=== PATIENT | male | born 1955 | race African-American/Black ===

== ENCOUNTER 2019-03-23 17:11 | Emergency (ER) | payer OTHER ==
[2019-03-23] MEDS ORDERED: METHYLPREDNISOLONE INJ 125 MG/2 ML SDV IV ONE (17:22)
[2019-03-23] MEDS ORDERED: IPRATROPIUM/ALBUTEROL 0.5-2.5 MG/3 ML AMPUL NEB ONE (17:22)
--- NOTE | 2019-03-23 17:24 | ER Document Report ---
ED Medical Screen (RME) - General Chief Complaint: Breathing Difficulty Stated Complaint: DIFFICULTY BREATHING Time Seen by Provider: 03/23/19 17:19 Mode of Arrival: Ambulatory Information source: Patient Notes: Patient presents complaining of shortness of breath that started yesterday. Patient denies any chest pain nausea vomiting or fever. Patient does report cough but states he has chronic cough. Patient does have a long history of smoking. Patient does not regularly see a doctor. I have greeted and performed a rapid initial assessment of this patient. A comprehensive ED assessment and evaluation of the patient, analysis of test results and completion of the medical decision making process will be conducted by additional ED providers. TRAVEL OUTSIDE OF THE [place] IN LAST 30 DAYS: No Past Medical History Past Surgical History: Reports: Other - Eye surgery - Immunizations Hx Diphtheria, Pertussis, Tetanus Vaccination: No Physical Exam - Vital signs Vitals: Temp Pulse Resp BP Pulse Ox 97.8 F 83 16 152/81 H 100 03/23/19 17:15 03/23/19 17:15 03/23/19 17:15 03/23/19 17:15 03/23/19 17:15 - Respiratory Respiratory status: No respiratory distress Chest status: Nontender Breath sounds: Nonproductive cough, Wheezing Course - Vital Signs Vital signs: Temp Pulse Resp BP Pulse Ox 97.8 F 83 16 152/81 H 100 03/23/19 17:15 03/23/19 17:15 03/23/19 17:15 03/23/19 17:15 03/23/19 17:15
--- NOTE | 2019-03-23 17:56 | RADIOLOGY REPORT (SQ) ---
EXAM DESCRIPTION: CHEST 2 VIEWS COMPLETED DATE/TIME: 03/23/2019 5:44 pm REASON FOR STUDY: sob COMPARISON: None. EXAM PARAMETERS: NUMBER OF VIEWS: two views TECHNIQUE: Digital Frontal and Lateral radiographic views of the chest acquired. RADIATION DOSE: NA LIMITATIONS: none FINDINGS: LUNGS AND PLEURA: No acute infiltrates or effusions. Calcification overlying right lower lung field between posterior 10th and 11th ribs consistent with calcified granuloma. MEDIASTINUM AND HILAR STRUCTURES: No masses or contour abnormalities. HEART AND VASCULAR STRUCTURES: Normal heart size and pulmonary vasculature. BONES: No acute findings. HARDWARE: None in the chest. OTHER: No other significant finding. IMPRESSION: NO ACUTE DISEASE. TECHNICAL DOCUMENTATION: JOB ID: [id number] SC-69 2010 [employer]- All Rights Reserved Reading location - IP/workstation name: [email or web address]
--- NOTE | 2019-03-23 18:11 | ER Document Report ---
ED General - General Chief Complaint: Shortness Of Breath Stated Complaint: DIFFICULTY BREATHING Time Seen by Provider: 03/23/19 17:19 [facility]: [facility] [[facility]] - Follow up as needed Mode of Arrival: Ambulatory Information source: Patient Notes: 63-year-old [id number] male presents with shortness of breath and chest tightness. He has had intermittent episodes of difficulties in the past worse over the past 24 hours. He has a 40-year pack per day smoking history and denies hematemesis or productive cough. He complains of a tightness in his chest and a difficulty moving air. He has been self-medicating with a rescue inhaler in the past, however has not seen a physician and was not prescribed any medications. He denies chest pain, palpitations or swelling in the lower extremities. TRAVEL OUTSIDE OF THE [place] IN LAST 30 DAYS: No - Related Data Allergies/Adverse Reactions: No Known Allergies Allergy (Unverified 03/23/19 17:26) Past Medical History - General Information source: Patient - Social History Smoking Status: Current Every Day Smoker Chew tobacco use (# tins/day): No Frequency of alcohol use: Occasional Drug Abuse: Cocaine Family History: Reviewed & Not Pertinent Patient has suicidal ideation: No Patient has homicidal ideation: No Past Surgical History: Reports: Other - Eye surgery - Immunizations Hx Diphtheria, Pertussis, Tetanus Vaccination: No Review of Systems - Review of Systems Notes: REVIEW OF SYSTEMS GENERAL: Negative for any nausea, vomiting, fevers, chills, or weight loss. NEUROLOGIC: Negative for any blurry vision, blind spots, double vision, facial asymmetry, dysphagia, dysarthria, hemiparesis, hemisensory deficits, vertigo, ataxia. HEENT: Negative for any head trauma, neck trauma, neck stiffness, photophobia, phonophobia, sinusitis, rhinitis. CARDIAC: Negative for any chest pain, dyspnea on exertion, paroxysmal nocturnal dyspnea, peripheral edema. PULMONARY:+shortness of breath, +wheezing, no COPD, or TB exposure. GASTROINTESTINAL: Negative for any abdominal pain, nausea, vomiting, bright red blood per rectum, melena. GENITOURINARY: Negative for any dysuria, hematuria, incontinence. INTEGUMENTARY: Negative for any rashes, cuts, insect bites. RHEUMATOLOGIC: Negative for any joint pains, photosensitive rashes, history of vasculitis or kidney problems. HEMATOLOGIC: Negative for any abnormal bruising, frequent infections or bleeding. I made no change Physical Exam - Vital signs Vitals: Pulse Ox 97 03/23/19 17:11 - Notes Notes: Reviewed vital signs and nursing note as charted by RN. CONSTITUTIONAL: Thin, alert and responsive 63-year-old man in no acute distress. HEAD: Normocephalic; atraumatic; No swelling EYES: PERRL; Conjunctivae clear, no drainage; EOMI ENT: External ears without lesions; External auditory canal is patent; TMs without erythema, landmarks clear and well visualized; no rhinorrhea; Pharynx without erythema or lesions, no tonsillar hypertrophy, airway patent, mucous me mbranes pink and moist NECK: Supple, no cervical lymphadenopathy, no masses CARD: Regular rate and rhythm; no murmurs, no rubs, no gallops, capillary refill < 2 seconds, symmetric pulses RESP: Respiratory rate and effort are normal. There is normal chest excursion. Mild expiratory wheezes, no respiratory distress, no retractions, no stridor, no nasal flaring, no accessory muscle use. The lungs are clear to auscultation bilaterally, no wheezing, no rales, no rhonchi. ABD/GI: Normal bowel sounds; non-distended; soft, non-tender, no rebound, no guarding, no palpable organomegaly EXT: Normal ROM in all joints; non-tender to palpation; no effusions, no edema SKIN: Normal color for age and race; warm; dry; good turgor; no acute lesions noted NEURO: No facial asymmetry; Moves all extremities equally; Motor and sensory function intact Course - Re-evaluation Re-evalutation: 03/23/19 20:02 Patient is sleeping and resting comfortably after nebulizer treatment and Solu- Medrol. Chest x-ray is negative I discussed those findings with the patient and his sister, he will be given p.o. antibiotics, steroids, rescue inhaler I encouraged him to decrease his smoking and follow-up with the [place] outpatient clinic. The patient affirms and understanding of this plan and is ready to go home. - Vital Signs Vital signs: Temp Pulse Resp BP Pulse Ox 97.8 F 83 17 125/79 94 03/23/19 17:15 03/23/19 17:15 03/23/19 19:01 03/23/19 19:00 03/23/19 19:01 - Laboratory Result Diagrams: 03/23/19 18:29 03/23/19 18:29 Laboratory results interpreted by me: 03/23/19 03/23/19 18:29 18:29 RDW 14.1 H Eos % (Auto) 7.6 H BUN 21 H Creatinine 1.62 H Est GFR ( Amer) 53 L Est GFR (MDRD) Non-Af 43 L - Diagnostic Test Radiology reviewed: Image reviewed - Normal chest x-ray no infiltrate or effusion., Reports reviewed Discharge - Discharge Clinical Impression: Bronchospasm Acute bronchitis Qualifiers: Bronchitis organism: other organism Qualified Code(s): J20.8 - Acute bronchitis due to other specified organisms COPD (chronic obstructive pulmonary disease) Qualifiers: COPD type: unspecified COPD Qualified Code(s): J44.9 - Chronic obstructive pulmonary disease, unspecified Condition: Good Disposition: HOME, SELF-CARE Forms: Smoking Cessation Education Referrals: [facility] [Primary Care [facility]] - Follow up as needed
[2019-03-23] MEDS ORDERED: ONDANSETRON HCL INJ/PF 4 MG/2 ML SDV ONE (18:13)
[2019-03-23] MEDS ORDERED: ONDANSETRON HCL INJ/PF 4 MG/2 ML SDV IV ONE (18:16)
[2019-03-23] MEDS: ALBUTEROL SULFATE 0.083% NEB 2.5 MG/3 ML AMPUL NEB SCH ×2 (18:17→18:18)
[2019-03-23 18:53] LABS: ABSOLUTE EOSINOPHILS # (AUTO) 0.3 10^3/uL (0.0-0.6); ABSOLUTE LYMPHOCYTES (AUTO) 1.7 10^3/uL (0.5-4.7); ABSOLUTE MONOCYTES (AUTO) 0.4 10^3/uL (0.1-1.4); HEMATOCRIT 42.3 % (37.9-51.0); TOTAL CELLS COUNTED % (AUTO) 100 %
[2019-03-23 19:03] LABS: ABSOLUTE NEUT (AUTO) 2.1 10^3/uL (1.7-8.2); BASOPHILS % (AUTO) 0.8 % (0-2); EOSINOPHILS % (AUTO) 7.6 % (0-6); HEMOGLOBIN 14.1 g/dL (13.5-17.0); LYMPHOCYTES % (AUTO) 36.5 % (13-45); MEAN CORPUSCULAR HEMOGLOBIN 29.3 pg (27.0-33.4); MEAN CORPUSCULAR HGB CONC 33.4 g/dL (32.0-36.0); MEAN CORPUSCULAR VOLUME 88 fl (80-97); MONOCYTES % (AUTO) 8.5 % (3-13); PLATELET COUNT 284 10^3/uL (150-450); RED BLOOD COUNT 4.82 10^6/uL (4.35-5.55); RED CELL DISTRIBUTION WIDTH 14.1 % (11.5-14.0); SEGMENTED NEUTROPHILS % (AUTO) 46.6 % (42-78); WHITE BLOOD COUNT 4.5 10^3/uL (4.0-10.5)
[2019-03-23 19:11] LABS: ALBUMIN 4.4 g/dL (3.5-5.0); ALKALINE PHOSPHATASE 71 U/L (38-126); ANION GAP 10 (5-19); ASPARTATE AMINO TRANSFERASE 37 U/L (17-59); BILIRUBIN,DIRECT 0.1 mg/dL (0.0-0.4); BILIRUBIN,TOTAL 0.4 mg/dL (0.2-1.3); BLOOD UREA NITROGEN 21 mg/dL (7-20); CALCIUM 9.7 mg/dL (8.4-10.2); CARBON DIOXIDE 28 mmol/L (22-30); CHLORIDE 102 mmol/L (98-107); GLUCOSE 79 mg/dL (75-110); POTASSIUM 4.4 mmol/L (3.6-5.0)
[2019-03-23 19:23] LABS: NT PRO BNP 111 pg/mL (<125)
[2019-03-23 19:25] LABS: TROPONIN I < 0.012 ng/mL
[2019-03-23 20:39] VITALS: BP 122/72
--- NOTE | 2019-03-23 21:30 | EKG REPORT ---
SEVERITY:- ABNORMAL ECG - SINUS RHYTHM BIATRIAL ABNORMALITIES NONSPECIFIC T ABNORMALITIES, ANT-LAT LEADS : Confirmed by: Noble Sampson 23-Mar-2019 21:30:04
== END 2019-03-23 20:47 | disposition home or self-care (01) ==
LOC: ER 17:11
DX: J98.01 Acute bronchospasm (principal); R07.9 Chest pain, unspecified; F17.210 Nicotine dependence, cigarettes, uncomplicated; J44.9 Chronic obstructive pulmonary disease, unspecified
CPT/HCPCS: 93005; 94640 ×2; 99285; 96374; 96375; 36415; 85025; 80053; 84484; 83880; 71046; 93010; J2930; J2405; J7620

== ENCOUNTER 2019-07-25 00:43 | Emergency (ER) | payer OTHER ==
[2019-07-25] MEDS ORDERED: IPRATROPIUM/ALBUTEROL 0.5-2.5 MG/3 ML AMPUL NEB ONE (01:20)
[2019-07-25 01:55] LABS: ABSOLUTE MONOCYTES (AUTO) 0.6 10^3/uL (0.1-1.4); BASOPHILS % (AUTO) 0.8 % (0-2); HEMATOCRIT 40.8 % (37.9-51.0); TOTAL CELLS COUNTED % (AUTO) 100 %
[2019-07-25 02:03] LABS: ABSOLUTE EOSINOPHILS # (AUTO) 0.2 10^3/uL (0.0-0.6); ABSOLUTE LYMPHOCYTES (AUTO) 1.7 10^3/uL (0.5-4.7); ABSOLUTE NEUT (AUTO) 1.6 10^3/uL (1.7-8.2); EOSINOPHILS % (AUTO) 5.6 % (0-6); HEMOGLOBIN 13.8 g/dL (13.5-17.0); LYMPHOCYTES % (AUTO) 40.8 % (13-45); MEAN CORPUSCULAR HGB CONC 33.7 g/dL (32.0-36.0); MEAN CORPUSCULAR VOLUME 86 fl (80-97); MONOCYTES % (AUTO) 13.7 % (3-13); PLATELET COUNT 213 10^3/uL (150-450); RED BLOOD COUNT 4.75 10^6/uL (4.35-5.55); RED CELL DISTRIBUTION WIDTH 14.3 % (11.5-14.0); SEGMENTED NEUTROPHILS % (AUTO) 39.1 % (42-78); WHITE BLOOD COUNT 4.2 10^3/uL (4.0-10.5)
[2019-07-25 02:09] LABS: ALBUMIN 4.3 g/dL (3.5-5.0); ALKALINE PHOSPHATASE 82 U/L (38-126); ANION GAP 5 (5-19); ASPARTATE AMINO TRANSFERASE 38 U/L (17-59); BILIRUBIN,TOTAL 0.3 mg/dL (0.2-1.3); BLOOD UREA NITROGEN 30 mg/dL (7-20); CALCIUM 9.2 mg/dL (8.4-10.2); CARBON DIOXIDE 32 mmol/L (22-30); CHLORIDE 103 mmol/L (98-107); GLUCOSE 103 mg/dL (75-110); POTASSIUM 4.7 mmol/L (3.6-5.0); TOTAL PROTEIN 7.7 g/dL (6.3-8.2)
--- NOTE | 2019-07-25 02:10 | RADIOLOGY REPORT (SQ) ---
EXAM: XR Chest, 2 Views EXAM DATE/TIME: 07/25/2019 1:53 AM CLINICAL HISTORY: The patient is 63 years old and is Male; shortness of breath TECHNIQUE: Frontal and lateral views of the chest. COMPARISON: Chest radiograph from 03/23/2019 FINDINGS: LUNGS: The lungs are hyperinflated. Probable small calcified granuloma projecting over the right lower lung. The lungs are otherwise clear. No consolidation. PLEURAL SPACE: Unremarkable. No pneumothorax. HEART: No significant enlargement of the cardiac silhouette. MEDIASTINUM: Unremarkable. BONES/JOINTS: No acute osseous findings. IMPRESSION: No acute findings visualized in the chest.
--- NOTE | 2019-07-25 06:21 | ER Document Report ---
ED Respiratory Problem - General Chief Complaint: Breathing Difficulty Stated Complaint: DIFFICULTY BREATHING Time Seen by Provider: 07/25/19 03:32 Primary Care Provider: TIA MALIK [Primary Care Provider] - Follow up as needed Notes: 63-year-old man presents to the emergency department complaining of shortness of breath and difficulty breathing. Apparently he has a history of shortness of breath and uses an inhaler. States that he has been using inhaler more frequently lately. He denies chest pain or palpitations. He also denies fever or productive cough.He has a 40-year pack per day smoking history and denies hematemesis or productive cough. TRAVEL OUTSIDE OF THE [place] IN LAST 30 DAYS: No - Related Data Allergies/Adverse Reactions: No Known Allergies Allergy (Unverified 03/23/19 17:26) Home Medications: albuterol inhaler Past Medical History - Social History Smoking Status: Current Every Day Smoker Frequency of alcohol use: Occasional Drug Abuse: Cocaine Family History: Reviewed & Not Pertinent Patient has suicidal ideation: No Patient has homicidal ideation: No Pulmonary Medical History: Reports: Hx Asthma, Hx COPD Past Surgical History: Reports: Other - Eye surgery - Immunizations Hx Diphtheria, Pertussis, Tetanus Vaccination: No Review of Systems - Review of Systems Notes: Constitutional: Negative for fever. HENT: Negative for sore throat. Eyes: Negative for visual changes. Cardiovascular: Negative for chest pain. Respiratory: + shortness of breath. Gastrointestinal: Negative for abdominal pain, vomiting or diarrhea. Genitourinary: Negative for dysuria. Musculoskeletal: Negative for back pain. Skin: Negative for rash. Neurological: Negative for headaches, weakness or numbness. 10 point ROS negative except as marked above and in HPI. Physical Exam - Vital signs Vitals: Temp Pulse Resp BP Pulse Ox 97.9 F 71 20 173/90 H 95 07/25/19 00:53 07/25/19 00:53 07/25/19 00:53 07/25/19 00:53 07/25/19 00:53 - Notes Notes: PHYSICAL EXAMINATION: Physical Exam: General: Well-nourished well-developed 63-year-old man in no acute distress HEENT: NC/AT, pupils equal round and reactive to light, MM moist,nares clear, oropharynx clear, airway patent Neck: supple, no adenopathy, no masses. Good range of motion Lungs: clear, no wheezing, no rales no rhonchi CVS: Regular rate and rhythm no murmur gallop or rub Abdomen: Soft, active, nontender, no masses, no hepatosplenomegaly Ext: No edema, clubbing or cyanosis. Neuro: Alert and responsive, moving all 4 extremities on command, cranial nerves intact, no focal findings Skin: Intact no open lesions, no rash PSYCH: Normal mood, normal affect. Course - Re-evaluation Re-evalutation: 07/25/19 06:17 Nebulizer treatment with improvement of his symptoms states that he feels much better. Patient is resting quietly on the bed sleeping, prescription for albuterol inhaler and prednisone will be given at the time of discharge. I have encouraged the patient to follow-up with the [facility] and he states that he will. 07/25/19 06:28 - Vital Signs Vital signs: Temp Pulse Resp BP Pulse Ox 97.7 F 71 16 133/86 H 98 07/25/19 06:01 07/25/19 00:53 07/25/19 06:01 07/25/19 06:01 07/25/19 06:01 - Laboratory Result Diagrams: 07/25/19 01:35 07/25/19 01:35 Laboratory results interpreted by me: 07/25/19 07/25/19 01:35 01:35 RDW 14.3 H Lander % (Auto) 13.7 H Absolute Neuts (auto) 1.6 L Seg Neutrophils % 39.1 L Carbon Dioxide 32 H BUN 30 H Creatinine 1.54 H Est GFR ( Amer) 56 L Est GFR (MDRD) Non-Af 46 L - Diagnostic Test Radiology reviewed: Image reviewed, Reports reviewed - Chest x-ray: No acute infiltrate or effusion - EKG Interpretation by Oh EKG shows normal: Sinus rhythm - Rate of 54, LVH, repolarization abnormality. Discharge - Discharge Clinical Impression: Acute bronchospasm COPD (chronic obstructive pulmonary disease) Qualifiers: COPD type: chronic bronchitis Chronic bronchitis type: simple Qualified Code(s): J41.0 - Simple chronic bronchitis Condition: Good Disposition: HOME, SELF-CARE Instructions: Chronic Obstructive Lung Disease ([facility]) Additional Instructions: You were seen for a COPD exacerbation. Your symptoms improved with treatment here in the emergency department. However, it is very important that you return to the emergency department immediately if you began to have worsening difficulty breathing that does not respond to your normal home nebulizers. You are also being sent home on a five-day course of steroids that you should start taking tomorrow. Please also follow closely with your primary care physician. You should eturn to emergency department if you develop fever greater than 101, persistent cough, persistent vomiting, pass out, or any other symptoms that are concerning to you. Prescriptions: Prednisone [Deltasone 20 mg Tablet] 1 tab PO BID 5 Days #10 tablet Albuterol Sulfate [Proair HFA Inhalation Aerosol 8.5 gm MDI] 2 puff IH Q4H PRN #1 mdi PRN Reason: [facility]errals: [facility] [[facility]] - Follow up as needed
[2019-07-25 08:49] VITALS: BP 152/101
--- NOTE | 2019-07-25 09:58 | EKG REPORT ---
SEVERITY:- ABNORMAL ECG - SINUS RHYTHM CONSIDER LEFT VENTRICULAR HYPERTROPHY ANTERIOR ST ELEVATION, PROBABLY DUE TO LVH : Confirmed by: Noble Sampson 25-Jul-2019 09:57:28
== END 2019-07-25 08:49 | disposition home or self-care (01) ==
LOC: ER 00:43
DX: J44.9 Chronic obstructive pulmonary disease, unspecified (principal); J98.01 Acute bronchospasm; R06.02 Shortness of breath; F17.200 Nicotine dependence, unspecified, uncomplicated; F14.10 Cocaine abuse, uncomplicated; I51.7 Cardiomegaly; Z79.899 Other long term (current) drug therapy
CPT/HCPCS: 93005; 94640; 99285; 36415; 85025; 80053; 71046; 93010; J7620

== ENCOUNTER 2019-08-25 11:16 | Inpatient (IN) | payer OTHER ==
[2019-08-25 11:37] LABS: ABSOLUTE LYMPHOCYTES (AUTO) 1.7 10^3/uL (0.5-4.7); ABSOLUTE MONOCYTES (AUTO) 0.5 10^3/uL (0.1-1.4); ABSOLUTE NEUT (AUTO) 9.4 10^3/uL (1.7-8.2); BASOPHILS % (AUTO) 0.2 % (0-2); LYMPHOCYTES % (AUTO) 14.4 % (13-45); MEAN CORPUSCULAR HEMOGLOBIN 28.7 pg (27.0-33.4); MEAN CORPUSCULAR HGB CONC 33.3 g/dL (32.0-36.0); MEAN CORPUSCULAR VOLUME 86 fl (80-97); MONOCYTES % (AUTO) 4.6 % (3-13); PLATELET COUNT 221 10^3/uL (150-450); RED BLOOD COUNT 5.22 10^6/uL (4.35-5.55); RED CELL DISTRIBUTION WIDTH 15.1 % (11.5-14.0); SEGMENTED NEUTROPHILS % (AUTO) 80.8 % (42-78); TOTAL CELLS COUNTED % (AUTO) 100 %; WHITE BLOOD COUNT 11.6 10^3/uL (4.0-10.5)
[2019-08-25 11:54] LABS: ALBUMIN 4.4 g/dL (3.5-5.0); ALKALINE PHOSPHATASE 70 U/L (38-126); ANION GAP 11 (5-19); ASPARTATE AMINO TRANSFERASE 51 U/L (17-59); BILIRUBIN,DIRECT 0.1 mg/dL (0.0-0.4); BILIRUBIN,TOTAL 1.3 mg/dL (0.2-1.3); BLOOD UREA NITROGEN 37 mg/dL (7-20); CALCIUM 9.1 mg/dL (8.4-10.2); CARBON DIOXIDE 24 mmol/L (22-30); CHLORIDE 100 mmol/L (98-107); CREATINE KINASE 344 U/L (55-170); GLUCOSE 119 mg/dL (75-110); POTASSIUM 5.2 mmol/L (3.6-5.0)
--- NOTE | 2019-08-25 12:04 | RADIOLOGY REPORT (SQ) ---
EXAM DESCRIPTION: CHEST SINGLE VIEW IMAGES COMPLETED DATE/TIME: 08/25/2019 11:55 am REASON FOR STUDY: sob COMPARISON: 07/25/2019 EXAM PARAMETERS: NUMBER OF VIEWS: One view. TECHNIQUE: Single frontal radiographic view of the chest acquired. RADIATION DOSE: NA LIMITATIONS: None. FINDINGS: LUNGS AND PLEURA: Segmental consolidation with air bronchograms in the left lower lobe. S mall left pleural effusion. MEDIASTINUM AND HILAR STRUCTURES: No masses. Contour normal. HEART AND VASCULAR STRUCTURES: Heart normal in size. Normal vasculature. BONES: No acute findings. HARDWARE: None in the chest. OTHER: No other significant finding. IMPRESSION: Left lower lobe pneumonia. TECHNICAL DOCUMENTATION: JOB ID: [id number] 2010 [employer]- All Rights Reserved Reading location - IP/workstation name: [email or web address]
[2019-08-25 12:07] LABS: CREATINE KINASE MB 0.75 ng/mL (<4.55); TROPONIN I 0.012 ng/mL
[2019-08-25] MEDS ORDERED: CEFTRIAXONE 1 GM/D5W RTU 1 GM/50 ML RTUPB IV ONE (12:17)
[2019-08-25] MEDS ORDERED: AZITHROMYCIN INJ 500 MG VIAL IV ONE (12:18)
--- NOTE | 2019-08-25 12:39 | ER Document Report ---
ED General - General Chief Complaint: Shortness Of Breath Stated Complaint: SHORTNESS OF BREATH Time Seen by Provider: 08/25/19 12:11 Primary Care Provider: [facility] [Primary Care Provider] - Follow up as needed TRAVEL OUTSIDE OF THE [place] IN LAST 30 DAYS: No - HPI Notes: Chief complaint: Shortness of breath, wheezing, pleuritic chest pain, productive cough and fever 63-year-old male followed by the [place] [facility] who smokes in excess of 1 pack of cigarettes per day with ongoing smoking and has a history of COPD. Not currently using oxygen at home. Symptoms as noted above progressively worsening for 3 days. No recent travel. No known exposure to Covid-19. No known allergies. Patient was initially noted to have an O2 saturation of 85% on room air. Currently on 4 L nasal O2 with 98% O2 saturation. - Related Data Allergies/Adverse Reactions: No Known Allergies Allergy (Unverified 03/23/19 17:26) Past Medical History - General Information source: Patient, Emergency Med Personnel - Social History Smoking Status: Current Every Day Smoker Chew tobacco use (# tins/day): No Frequency of alcohol use: None Drug Abuse: None Family History: Reviewed & Not Pertinent Patient has suicidal ideation: No Patient has homicidal ideation: No Pulmonary Medical History: Reports: Hx Asthma, Hx COPD Past Surgical History: Reports: Other - Eye surgery - Immunizations Hx Diphtheria, Pertussis, Tetanus Vaccination: No Review of Systems - Review of Systems Notes: Constitutional: As per HPI. HENT: Negative for sore throat. Eyes: Negative for visual changes. Cardiovascular: Pleuritic chest pain on the left. Respiratory: As per HPI. Gastrointestinal: Negative for abdominal pain, vomiting or diarrhea. Genitourinary: Negative for dysuria. Musculoskeletal: Negative for back pain. Skin: Negative for rash. Neurological: Negative for headaches, weakness or numbness. 10 point ROS negative except as marked above and in HPI. Physical Exam - Vital signs Vitals: BP 111/68 08/25/19 11:09 - Notes Notes: GENERAL: Slender male appearing approximately stated age who appears mildly dyspneic. SKIN: Good turgor no rashes. HEAD: Normocephalic atraumatic. EYES: PERRLA. EOMI. Conjunctivae and sclerae clear. EARS: CANALS AND TMS CLEAR. NOSE: CLEAR. MOUTH: Moist mucosa. Good dentition. No stridor or edema. No drooling. NECK: Supple. No masses or thyromegaly. No adenopathy. Carotids 2+ without bruits. No JVD. BACK: Symmetrical without tenderness. CHEST: Mildly tachypneic. Diminished breath sounds left base with diffuse faint wheezes. HEART: Regular rhythm. No murmur gallop or rub. ABDOMEN: Soft nontender without masses, organomegaly or rebound. Bowel sounds normally active. No bruits. GENITALIA: Deferred. EXTREMITIES: No edema. No calf tenderness. Cap refill less than 1.5 seconds. Dorsalis pedis and posterior tibial pulses 3+ and symmetrical. NEUROLOGICAL: GCS 15. Alert and oriented x3. Normal gait. Fluent speech. Cranial nerves II through XII intact. Sensorimotor and cerebellar normal. Normal tone. PSYCHIATRIC: Appropriate affect. Course - Re-evaluation Re-evalutation: 08/25/19 12:49 Blood cultures obtained. IV Rocephin and Zithromax. IV Solu-Medrol. Albuterol metered-dose inhaler. Because of the patient's new oxygen requirement he will need to be admitted. Influenza screen is pending. If this is negative we will also need to obtain screen for Covid 19 08/25/19 13:12 Covid swab requested. - Vital Signs Vital signs: Temp Pulse Resp BP Pulse Ox 97.6 F 33 H 120/69 92 08/25/19 12:00 08/25/19 12:00 08/25/19 12:00 08/25/19 12:00 - Laboratory Result Diagrams: 08/25/19 11:21 08/25/19 11:21 Laboratory results interpreted by me: 08/25/19 08/25/19 08/25/19 11:21 11:21 11:21 WBC 11.6 H RDW 15.1 H Absolute Neuts (auto) 9.4 H Seg Neutrophils % 80.8 H Sodium 134.7 L Potassium 5.2 H BUN 37 H Creatinine 2.21 H Est GFR ( Amer) 37 L Est GFR (MDRD) Non-Af 30 L Glucose 119 H Creatine Kinase 344 H NT-Pro-B Natriuret Pep 508 H - Diagnostic Test Radiology reviewed: Reports reviewed Radiology results interpreted by me: 08/25/19 12:45 Left lower lobe pneumonia per radiologist. - EKG Interpretation by Me Additional EKG results interpreted by me: 08/25/19 12:46 Twelve-lead EKG from 1137 hrs. reviewed contemporaneously by me showing biatrial abnormality and sinus tachycardia with a rate of 105. QRS axis is 34 degrees. Intervals are normal. No acute ST/T wave changes. Discharge - Discharge Clinical Impression: COPD exacerbation Left lower lobe pneumonia Qualifiers: Pneumonia type: due to unspecified organism Qualified Code(s): J18.9 - Pneumonia, unspecified organism Condition: Good Disposition: ADMITTED INPATIENT Admitting Provider: [place] [facility] Admitted: Medical Floor [facility]errals: [facility] [Primary Care Provider] - Follow up as needed
[2019-08-25] MEDS ORDERED: ALBUTEROL SULFATE HFA (90 MCG/PUFF) 8 GM MDI (1 MDI/ER DISP) IH ONE (12:44)
[2019-08-25] MEDS ORDERED: NORMAL SALINE 1000 ML 1,000 ML IV ONE (12:52)
[2019-08-25] MEDS ORDERED: ALBUTEROL SULFATE HFA (90 MCG/PUFF) 8 GM MDI IH PRN (13:01)
[2019-08-25] MEDS ORDERED: GUAIFENESIN SYRP 200 MG/10 ML UDC PO PRN (13:01)
[2019-08-25 13:18] LABS: A TYPE INFLUENZA AG NEGATIVE (NEGATIVE); B INFLUENZA AG NEGATIVE (NEGATIVE)
[2019-08-25 13:38] LABS: C-REACTIVE PROTEIN 264.2 mg/L (<10.0)
[2019-08-25] MEDS ORDERED: HEPARIN SOD (PORCINE) 5,000 UNIT/ML 1 ML VIAL SUBCUT SCH (14:00)
--- NOTE | 2019-08-25 14:48 | PDOC H&P ---
History of Present Illness Admission Date/PCP: 08/25/19 13:12 [facility] Patient complains of: shortness of breath History of Present Illness: AMIE CRUZ is a 63 year old male with a past medical history of COPD and tobacco dependence with continuous use who presented to the emergency department today with a complaint of sudden onset of shortness of breath 3 days ago that has progressively worsened associated with subjective fevers and chills at home and a nonproductive cough. Evaluation in the emergency department revealed Hypoxia on room air, tachypnea, but otherwise stable vital signs, mild leukocytosis of 11.6, acute kidney injury evidenced by elevated creatinine, BUN, hyponatremia, hyperkalemia, proBNP of 508 with normal troponin. Influenza was negative. Chest x-ray demonstrated a left lower lobe infiltrate. He was provided nebulizer treatments, Solu-Medrol, IV Rocephin and azithromycin, and supplemental oxygen. He is referred to the hospitalist service for admission and management of the above-stated complaints and findings. Past Medical History Cardiac Medical History: Reports: None Pulmonary Medical History: Reports: Asthma, Chronic Obstructive Pulmonary Disease (COPD) EENT Medical History: Reports: None Neurological Medical History: Reports: None Endocrine Medical History: Reports: None Renal/ Medical History: Reports: None Malignancy Medical History: Reports: None GI Medical History: Reports: None Musculoskeltal Medical History: Reports: None Skin Medical History: Reports: None Psychiatric Medical History: Reports: Tobacco Dependency Traumatic Medical History: Reports: None Hematology: Reports: None Infectious Medical History: Reports: None Past Surgical History Past Surgical History: Reports: Other - Eye surgery Social History Information Source: Patient Lives with: Alone Smoking Status: Current Every Day Smoker Electronic Cigarette use?: No Frequency of Alcohol Use: Social Hx Recreational Drug Use: No Hx Prescription Drug Abuse: No - Advance Directive Resuscitation Status: Full Code Family History Family History: Reviewed & Not Pertinent Parental Family History Reviewed: Yes Children Family History Reviewed: Yes Sibling(s) Family History Reviewed.: Yes Medication/Allergy Allergies/Adverse Reactions: No Known Allergies Allergy (Unverified 03/23/19 17:26) Review of Systems Constitutional: PRESENT: chills, fever(s). ABSENT: headache(s), weight gain, weight loss Eyes: ABSENT: visual disturbances Ears: ABSENT: hearing changes Cardiovascular: PRESENT: dyspnea on exertion. ABSENT: chest pain, edema, orthropnea, palpitations Respiratory: PRESENT: cough, dyspnea, sputum. ABSENT: hemoptysis Gastrointestinal: ABSENT: abdominal pain, constipation, diarrhea, hematemesis, hematochezia, nausea, vomiting Genitourinary: ABSENT: dysuria, hematuria Musculoskeletal: ABSENT: joint swelling Integumentary: ABSENT: rash, wounds Neurological: ABSENT: abnormal gait, abnormal speech, confusion, dizziness, focal weakness, syncope Psychiatric: ABSENT: anxiety, depression, homidical ideation, suicidal ideation Endocrine: ABSENT: cold intolerance, heat intolerance, polydipsia, polyuria Hematologic/Lymphatic: ABSENT: easy bleeding, easy bruising Physical Exam Vital Signs: Temp Pulse Resp BP Pulse Ox 97.6 F 33 H 120/69 92 08/25/19 12:00 08/25/19 12:00 08/25/19 12:00 08/25/19 12:00 Intake & Output 08/24/19 08/25/19 08/26/19 06:59 06:59 06:59 Weight 74.843 kg General appearance: PRESENT: no acute distress, well-developed, well-nourished Head exam: PRESENT: atraumatic, normocephalic Eye exam: PRESENT: conjunctiva pink, EOMI, PERRLA. ABSENT: scleral icterus Ear exam: PRESENT: normal external ear exam Mouth exam: PRESENT: moist, tongue midline Neck exam: ABSENT: carotid bruit, JVD, lymphadenopathy, thyromegaly Respiratory exam: PRESENT: decreased breath sounds - Left greater than right, prolonged expiratory phas, rhonchi, symmetrical, tachypnea, wheezes, other - Supplemental oxygen Cardiovascular exam: PRESENT: RRR, +S1, +S2. ABSENT: diastolic murmur, rubs, systolic murmur Pulses: PRESENT: normal dorsalis pedis pul Vascular exam: PRESENT: normal capillary refill GI/Abdominal exam: PRESENT: normal bowel sounds, soft. ABSENT: distended, guarding, mass, organolmegaly, rebound, tenderness Rectal exam: PRESENT: deferred Extremities exam: PRESENT: full ROM. ABSENT: calf tenderness, clubbing, pedal edema Neurological exam: PRESENT: alert, awake, oriented to person, oriented to place, oriented to time, oriented to situation, CN II-XII grossly intact. ABSENT: motor sensory deficit Psychiatric exam: PRESENT: appropriate affect, normal mood. ABSENT: homicidal ideation, suicidal ideation Skin exam: PRESENT: dry, intact, warm. ABSENT: cyanosis, rash Results Laboratory Results: 08/25/19 11:21 08/25/19 11:21 08/25/19 08/25/19 08/25/19 11:21 11:21 11:21 WBC 11.6 H RBC 5.22 Hgb 15.0 Hct 45.0 MCV 86 MCH 28.7 MCHC 33.3 RDW 15.1 H Plt Count 221 Seg Neutrophils % 80.8 H Sodium 134.7 L Potassium 5.2 H Chloride 100 Carbon Dioxide 24 Anion Gap 11 BUN 37 H Creatinine 2.21 H Est GFR ( Amer) 37 L Glucose 119 H Calcium 9.1 Total Bilirubin 1.3 AST 51 Alkaline Phosphatase 70 C-Reactive Protein 264.2 H Total Protein 8.0 Albumin 4.4 08/25/19 08/25/19 11:21 11:21 Creatine Kinase 344 H CK-MB (CK-2) 0.75 Troponin I 0.012 NT-Pro-B Natriuret Pep 508 H Impressions: Chest X-Ray 08/25/19 11:23 IMPRESSION: Left lower lobe pneumonia. Assessment and Plan - Diagnosis (1) Left lower lobe pneumonia Qualifiers: Pneumonia type: due to unspecified organism Qualified Code(s): J18.9 - Pneumonia, unspecified organism Is this a current diagnosis for this admission?: Yes Plan: Bloodcultures pending. Sputum cultures pending Influenza negative. COVID19 pending Patient is provided supplemental oxygen as needed maintain saturations greater than 89%. Patient is empirically placed on IV azithromycin and ceftriaxone for coverage of community-acquired pneumonia He is placed on scheduled and as needed albuterol MDI; will avoid nebulizer secondary to COVID r/o Start daily increase Mucinex twice daily He is placed on Robitussin as needed. Pulmonary toilet is encouraged with incentive spirometer, flutter valve, early ambulation. (2) COPD exacerbation Is this a current diagnosis for this admission?: Yes Plan: In addition to the above, patient is placed on p.o. prednisone. (3) Suspected COVID-19 virus infection Is this a current diagnosis for this admission?: Yes Plan: CXR shows dense left lobe PNA; typical for bacterial Influenza negative. COVID pending. Lymph% 14.4 D-dimer 3.67; start on full dose Lovenox. CRP 264 Ferritin 340 Start vitamin C, vitamin D, zinc, and melatonin supplementation. Avoid aerosolizing treatments and procedures. Contact and droplet precautions. (4) Acute respiratory failure with hypoxia Is this a current diagnosis for this admission?: Yes Plan: Secondary #1-3; complicated by heavy tobacco dependency. Evaluation and management as above. (5) Tobacco dependence Is this a current diagnosis for this admission?: Yes Plan: Smoking cessation encouraged. Nicotine replacement therapies provided. - Time Time Spent with patient: 35 or more minutes
[2019-08-25] MEDS: NICOTINE 21 MG/24 HR PATCH.TD24 TD SCH (16:49)
[2019-08-25] MEDS: ACETAMINOPHEN 325 MG TABLET PO PRN ×2 (16:49→21:14)
[2019-08-25 16:54] LABS: APPEARANCE,URINE SLIGHTLY-CLOUDY; BILIRUBIN,URINE NEGATIVE (NEGATIVE); COLOR,URINE YELLOW; GLUCOSE, URINE NEGATIVE (NEGATIVE); KETONES,URINE NEGATIVE (NEGATIVE); LEUKOCYTE ESTERASE,URINE NEGATIVE (NEGATIVE); NITRITE,URINE NEGATIVE (NEGATIVE); PROTEIN,URINE 30 mg/dL (NEGATIVE); URINE SPECIFIC GRAVITY 1.019; UROBILINOGEN,URINE NEGATIVE mg/dL (<2.0)
[2019-08-25] MEDS ORDERED: ALBUTEROL SULFATE HFA (90 MCG/PUFF) 8 GM MDI IH ONE (16:56)
[2019-08-25] MEDS: ALBUTEROL SULFATE HFA (90 MCG/PUFF) 8 GM MDI IH SCH (17:00)
[2019-08-25] MEDS: ASCORBIC ACID 500 MG TABLET PO SCH (17:01)
[2019-08-25] MEDS: NORMAL SALINE 1000 ML 1,000 ML IV PRN (19:00)
[2019-08-25] MEDS: ENOXAPARIN SODIUM INJ 80 MG/0.8 ML DISP.SYRIN SUBCUT SCH (21:12)
[2019-08-25] MEDS: MELATONIN 3 MG TABLET PO SCH (21:13)
[2019-08-25] MEDS: GUAIFENESIN 600 MG TABLET.SA PO SCH (21:13)
[2019-08-25] MEDS: FAMOTIDINE 20 MG TABLET PO SCH (21:14)
--- NOTE | 2019-08-25 22:28 | EKG REPORT ---
SEVERITY:- ABNORMAL ECG - SINUS TACHYCARDIA BIATRIAL ABNORMALITIES BORDERLINE T WAVE ABNORMALITIES : Confirmed by: Arlene Abreu MD 25-Aug-2019 22:27:52
[2019-08-26] MEDS: ALBUTEROL SULFATE HFA (90 MCG/PUFF) 8 GM MDI IH SCH ×4 (01:54→17:06)
[2019-08-26] MEDS: NORMAL SALINE 1000 ML 1,000 ML IV PRN ×2 (06:21→17:05)
[2019-08-26 06:37] LABS: HEMATOCRIT 32.9 % (37.9-51.0); MEAN CORPUSCULAR HGB CONC 34.2 g/dL (32.0-36.0); MEAN CORPUSCULAR VOLUME 85 fl (80-97); PLATELET COUNT 131 10^3/uL (150-450); RED BLOOD COUNT 3.89 10^6/uL (4.35-5.55); WHITE BLOOD COUNT 7.6 10^3/uL (4.0-10.5)
[2019-08-26 06:44] LABS: ANION GAP 5 (5-19); BLOOD UREA NITROGEN 39 mg/dL (7-20); CALCIUM 8.1 mg/dL (8.4-10.2); CARBON DIOXIDE 23 mmol/L (22-30); CHLORIDE 105 mmol/L (98-107); GLUCOSE 108 mg/dL (75-110)
[2019-08-26 07:01] LABS: POTASSIUM 4.2 mmol/L (3.6-5.0)
[2019-08-26 07:28] LABS: ABSOLUTE LYMPHOCYTES# (MANUAL) 1.4 10^3/uL (0.5-4.7); ABSOLUTE MONOCYTES # (MANUAL) 0.2 10^3/uL (0.1-1.4); BAND NEUTROPHILS % (MANUAL) 10 % (3-5); BASOPHILS % (MANUAL) 0 % (0-2); EOSINOPHILS % (MANUAL) 0 % (0-6); LYMPHOCYTES % (MANUAL) 18 % (13-45); MONOCYTES % (MANUAL) 3 % (3-13); SEGMENTED NEUTROPHILS % (MAN) 69 % (42-78); TOTAL CELLS COUNTED 100
[2019-08-26 07:29] LABS: ANISOCYTOSIS 1+; HEMOGLOBIN 11.3 g/dL (13.5-17.0); PLATELET COMMENT ADEQUATE; POLYCHROMASIA 1+
[2019-08-26 08:23] LABS: APPEARANCE,URINE SLIGHTLY-CLOUDY; BILIRUBIN,URINE NEGATIVE (NEGATIVE); COLOR,URINE YELLOW; GLUCOSE, URINE NEGATIVE (NEGATIVE); KETONES,URINE NEGATIVE (NEGATIVE); LEUKOCYTE ESTERASE,URINE NEGATIVE (NEGATIVE); NITRITE,URINE NEGATIVE (NEGATIVE); PROTEIN,URINE 30 mg/dL (NEGATIVE); URINE SPECIFIC GRAVITY 1.018
[2019-08-26] MEDS: ENOXAPARIN SODIUM INJ 80 MG/0.8 ML DISP.SYRIN SUBCUT SCH ×2 (09:29→21:55)
[2019-08-26] MEDS: CEFTRIAXONE 1 GM/D5W RTU 1 GM/50 ML RTUPB IV SCH (09:29)
[2019-08-26] MEDS: ZINC SULFATE 220 MG CAPSULE PO SCH (09:30)
[2019-08-26] MEDS: CHOLECALCIFEROL (D3) 1,000 UNIT (25 MCG) TABLET PO SCH (09:30)
[2019-08-26] MEDS: GUAIFENESIN 600 MG TABLET.SA PO SCH ×2 (09:30→21:50)
[2019-08-26] MEDS: ASCORBIC ACID 500 MG TABLET PO SCH ×2 (09:30→17:06)
[2019-08-26] MEDS: FAMOTIDINE 20 MG TABLET PO SCH (09:30)
[2019-08-26] MEDS: UMECLIDINIUM BROMIDE 62.5 MCG/DOSE IH SCH (09:34)
[2019-08-26] MEDS ORDERED: LIDOCAINE 5% (700 MG) TRANSDERMAL ADH..PATCH TP SCH (10:00)
[2019-08-26] MEDS: NICOTINE 21 MG/24 HR PATCH.TD24 TD SCH (10:42)
[2019-08-26] MEDS: AZITHROMYCIN 500 MG in DEXTROSE 5%-WATER 250 ML IV SCH (11:28)
[2019-08-26] MEDS: LIDOCAINE 5% (700 MG) TRANSDERMAL ADH..PATCH TP SCH (12:39)
[2019-08-26] MEDS ORDERED: LORAZEPAM 1 MG TABLET PO PRN (12:52)
--- NOTE | 2019-08-26 12:56 | PDOC PROGRESS REPORT ---
Subjective Progress Note for:: 08/26/19 Subjective:: AMIE CRUZ is a 63 year old male with a past medical history of COPD and tobacco dependence with continuous use who was admitted 08/25/19 with LLL PNA. Patient was seen on morning rounds. He was found resting in bed, comfortably, on supplemental oxygen by nasal cannula at 3 L/min; he is not home O2 dependent. He reports slight dyspnea and productive cough, although, states this is improved compared to yesterday. He denies fevers overnight. Overall he is feeling quite better. He has no new questions or concerns at this time. He specifically denies fever, chest pain, palpitations, orthopnea, abdominal pain, nausea vomiting and diarrhea. No concerns per nursing. Reason For Visit: ACUTE RESPIRATORY FAILURE WITH HYPOXIA,PNEUMONIA Physical Exam Vital Signs: Temp Pulse Resp BP Pulse Ox 99.4 F 77 25 H 106/53 L 99 08/26/19 11:56 08/26/19 11:56 08/26/19 11:56 08/26/19 11:56 08/26/19 11:56 Intake & Output 08/25/19 08/26/19 08/27/19 06:59 06:59 06:59 Intake Total 3120 300 Output Total 350 Balance 2770 300 Weight 61.4 kg General appearance: PRESENT: no acute distress, cooperative, thin, well- developed, well-nourished Head exam: PRESENT: atraumatic, normocephalic Eye exam: PRESENT: conjunctiva pink, EOMI, PERRLA. ABSENT: scleral icterus Ear exam: PRESENT: normal external ear exam Mouth exam: PRESENT: moist, tongue midline Teeth exam: PRESENT: poor dentation Respiratory exam: PRESENT: decreased breath sounds - L>R, rhonchi, symmetrical, unlabored, other. ABSENT: rales, wheezes Cardiovascular exam: PRESENT: RRR. ABSENT: diastolic murmur, rubs, systolic murmur Pulses: PRESENT: normal dorsalis pedis pul Vascular exam: PRESENT: normal capillary refill GI/Abdominal exam: PRESENT: normal bowel sounds, soft. ABSENT: distended, gu arding, mass, organolmegaly, rebound, tenderness Rectal exam: PRESENT: deferred Extremities exam: PRESENT: full ROM. ABSENT: calf tenderness, clubbing, pedal edema Musculoskeletal exam: PRESENT: ambulatory Neurological exam: PRESENT: alert, awake, oriented to person, oriented to place, oriented to time, oriented to situation, CN II-XII grossly intact. ABSENT: motor sensory deficit Psychiatric exam: PRESENT: appropriate affect, normal mood. ABSENT: homicidal ideation, suicidal ideation Skin exam: PRESENT: dry, intact, warm. ABSENT: cyanosis, rash Results Laboratory Results: 08/26/19 05:55 08/26/19 05:55 08/25/19 08/25/19 08/26/19 11:21 16:10 05:55 WBC 7.6 RBC 3.89 L Hgb 11.3 L D Hct 32.9 L MCV 85 MCH 29.0 MCHC 34.2 RDW 15.0 H Plt Count 131 L Seg Neutrophils % Not Reportable Sodium Potassium Chloride Carbon Dioxide Anion Gap BUN Creatinine Est GFR ( Amer) Glucose Calcium Ferritin 340.00 C-Reactive Protein 264.2 H Urine Color YELLOW Urine Appearance SLIGHTLY-CLOUDY Urine pH 5.0 Ur Specific [place] 1.019 Urine Protein 30 H Urine Glucose (UA) NEGATIVE Urine Ketones NEGATIVE Urine Blood SMALL H Urine Nitrite NEGATIVE Ur Leukocyte Esterase NEGATIVE Urine WBC (Auto) 2 Urine RBC (Auto) 0 08/26/19 08/26/19 05:55 07:50 WBC RBC Hgb Hct MCV MCH MCHC RDW Plt Count Seg Neutrophils % Sodium 133.1 L Potassium 4.2 D Chloride 105 Carbon Dioxide 23 Anion Gap 5 BUN 39 H Creatinine 1.85 H Est GFR ( Amer) 45 L Glucose 108 Calcium 8.1 L Ferritin C-Reactive Protein Urine Color YELLOW Urine Appearance SLIGHTLY-CLOUDY Urine pH 5.0 Ur Specific [place] 1.018 Urine Protein 30 H Urine Glucose (UA) NEGATIVE Urine Ketones NEGATIVE Urine Blood MODERATE H Urine Nitrite NEGATIVE Ur Leukocyte Esterase NEGATIVE Urine WBC (Auto) 1 Urine RBC (Auto) 08/25/19 08/25/19 11:21 11:21 Creatine Kinase 344 H CK-MB (CK-2) 0.75 Troponin I 0.012 NT-Pro-B Natriuret Pep 508 H Impressions: Chest X-Ray 08/25/19 11:23 IMPRESSION: Left lower lobe pneumonia. Assessment and Plan - Diagnosis (1) Left lower lobe pneumonia Qualifiers: Pneumonia type: due to unspecified organism Qualified Code(s): J18.9 - Pneumonia, unspecified organism Is this a current diagnosis for this admission?: Yes Plan: Improved; Leukocytosis is resolved, decreased oxygen needs, improved clinical appearance. T-max 102.5 overnight. Blood cultures NTD Sputum cultures pending Influenza negative. COVID19 pending Patient is provided supplemental oxygen as needed maintain saturations greater than 89%. Patient is empirically placed on IV azithromycin and ceftriaxone for coverage of community-acquired pneumonia He is placed on scheduled and as needed albuterol MDI; will avoid nebulizer secondary to COVID r/o Start daily increase Mucinex twice daily He is placed on Robitussin as needed. Pulmonary toilet is encouraged with incentive spirometer, flutter valve, early ambulation. (2) COPD exacerbation Is this a current diagnosis for this admission?: Yes Plan: In addition to the above, patient is placed on p.o. prednisone. (3) Suspected COVID-19 virus infection Is this a current diagnosis for this admission?: Yes Plan: CXR shows dense left lobe PNA; typical for bacterial Influenza negative. COVID pending. Lymph% 14.4 D-dimer 3.67; start on full dose Lovenox. CRP 264 Ferritin 340 Start vitamin C, vitamin D, zinc, and melatonin supplementation. Full dose Lovenox. Avoid aerosolizing treatments and procedures. Contact and droplet precautions. (4) Acute respiratory failure with hypoxia Is this a current diagnosis for this admission?: Yes Plan: Secondary #1-3; complicated by heavy tobacco dependency. Evaluation and management as above. (5) Tobacco dependence Is this a current diagnosis for this admission?: Yes Plan: Smoking cessation encouraged. Nicotine replacement therapies provided. (6) Alcohol use Is this a current diagnosis for this admission?: Yes Plan: Nursing reports that the patient urinated in the trash can last night; no other evidence of disorientation/withdrawal. We will start on Folic acid and thiamine. PRN Ativan as needed for withdrawal symptoms. (7) RUKHSANA (acute kidney injury) Is this a current diagnosis for this admission?: Yes Plan: Improved. The secondary to dehydration in setting of fever, tachypnea, respiratory distress, poor p.o. intake. Patient was admitted with a creatinine/BUN of 2.21/37; baseline 1.6 Received 1 L normal saline bolus followed by IV fluids. We will continue IV fluids. Encourage p.o. intake. Avoid nephrotoxic medications as able. Follow-up chemistry. - Time Time Spent with patient: 35 or more minutes Medications reviewed and adjusted accordingly: Yes Anticipated discharge: Home Within: within 72 hours
[2019-08-26] MEDS: MELATONIN 3 MG TABLET PO SCH (21:50)
[2019-08-26] MEDS: PHARMACY COMMUNICATION ORDER MC SCH (21:51)
[2019-08-27] MEDS: ALBUTEROL SULFATE HFA (90 MCG/PUFF) 8 GM MDI IH SCH ×4 (00:17→17:47)
[2019-08-27] MEDS: ACETAMINOPHEN 325 MG TABLET PO PRN (00:24)
[2019-08-27 05:28] LABS: HEMATOCRIT 30.6 % (37.9-51.0); HEMOGLOBIN 10.5 g/dL (13.5-17.0); MEAN CORPUSCULAR HGB CONC 34.2 g/dL (32.0-36.0); MEAN CORPUSCULAR VOLUME 85 fl (80-97); PLATELET COUNT 117 10^3/uL (150-450); RED BLOOD COUNT 3.61 10^6/uL (4.35-5.55); RED CELL DISTRIBUTION WIDTH 14.9 % (11.5-14.0); WHITE BLOOD COUNT 6.6 10^3/uL (4.0-10.5)
[2019-08-27] MEDS: NORMAL SALINE 1000 ML 1,000 ML IV PRN ×2 (05:28→15:45)
[2019-08-27 05:45] LABS: BLOOD UREA NITROGEN 27 mg/dL (7-20); CALCIUM 7.9 mg/dL (8.4-10.2); GLUCOSE 102 mg/dL (75-110); POTASSIUM 3.8 mmol/L (3.6-5.0)
[2019-08-27 05:50] LABS: CARBON DIOXIDE 23 mmol/L (22-30); CHLORIDE 109 mmol/L (98-107)
[2019-08-27 05:53] LABS: ANION GAP 4 (5-19)
[2019-08-27] MEDS: LIDOCAINE 5% (700 MG) TRANSDERMAL ADH..PATCH TP SCH (09:11)
[2019-08-27] MEDS: ENOXAPARIN SODIUM INJ 80 MG/0.8 ML DISP.SYRIN SUBCUT SCH ×2 (09:15→22:36)
[2019-08-27] MEDS: NICOTINE 21 MG/24 HR PATCH.TD24 TD SCH (09:16)
[2019-08-27] MEDS: GUAIFENESIN 600 MG TABLET.SA PO SCH ×2 (09:20→22:37)
[2019-08-27] MEDS: THIAMINE HCL 100 MG TABLET PO SCH (09:20)
[2019-08-27] MEDS: UMECLIDINIUM BROMIDE 62.5 MCG/DOSE IH SCH (09:20)
[2019-08-27] MEDS: ZINC SULFATE 220 MG CAPSULE PO SCH (09:20)
[2019-08-27] MEDS: CEFTRIAXONE 1 GM/D5W RTU 1 GM/50 ML RTUPB IV SCH (09:21)
[2019-08-27] MEDS: ASCORBIC ACID 500 MG TABLET PO SCH ×2 (09:21→17:47)
[2019-08-27] MEDS: FOLIC ACID 1 MG TABLET PO SCH (09:21)
[2019-08-27] MEDS: CHOLECALCIFEROL (D3) 1,000 UNIT (25 MCG) TABLET PO SCH (09:21)
[2019-08-27] MEDS: AZITHROMYCIN 500 MG in DEXTROSE 5%-WATER 250 ML IV SCH (09:21)
[2019-08-27] MEDS: FAMOTIDINE 20 MG TABLET PO SCH (09:21)
--- NOTE | 2019-08-27 12:57 | PDOC PROGRESS REPORT ---
Subjective Progress Note for:: 08/27/19 Subjective:: The patient is resting comfortably in bed on room air. He states that he does get somewhat short of breath when walking to the bathroom. He reports feeling better today. Reason For Visit: ACUTE RESPIRATORY FAILURE WITH HYPOXIA,PNEUMONIA Physical Exam Vital Signs: Temp Pulse Resp BP Pulse Ox 97.6 F 63 20 109/60 100 08/27/19 09:31 08/27/19 09:31 08/27/19 09:31 08/27/19 09:31 08/27/19 09:31 Intake & Output 08/26/19 08/27/19 08/28/19 06:59 06:59 06:59 Intake Total 3120 3536 300 Output Total 350 2200 Balance 2770 1336 300 Weight 61.4 kg 65.2 kg General appearance: PRESENT: no acute distress, cooperative, well-developed Head exam: PRESENT: atraumatic, normocephalic Eye exam: PRESENT: conjunctiva pink. ABSENT: scleral icterus Ear exam: PRESENT: normal external ear exam. ABSENT: bleeding, drainage Respiratory exam: PRESENT: clear to auscultation alana, symmetrical, unlabored. ABSENT: accessory muscle use, rales, rhonchi, tachypnea, wheezes Cardiovascular exam: PRESENT: RRR, +S1, +S2 GI/Abdominal exam: PRESENT: normal bowel sounds, soft. ABSENT: distended, tenderness Rectal exam: PRESENT: deferred Gentrourinary exam: ABSENT: indwelling catheter Extremities exam: ABSENT: pedal edema Musculoskeletal exam: PRESENT: ambulatory, full ROM, normal inspection. ABSENT: deformity Neurological exam: PRESENT: alert, awake, oriented to person, oriented to place, oriented to time, oriented to situation, CN II-XII grossly intact. ABSENT: altered Psychiatric exam: PRESENT: flat affect. ABSENT: agitated, anxious Skin exam: PRESENT: dry, normal color, warm. ABSENT: rash Results Laboratory Results: 08/27/19 04:14 08/27/19 04:14 08/27/19 08/27/19 04:14 04:14 WBC 6.6 RBC 3.61 L Hgb 10.5 L Hct 30.6 L MCV 85 MCH 29.0 MCHC 34.2 RDW 14.9 H Plt Count 117 L Sodium 136.2 L Potassium 3.8 Chloride 109 H Carbon Dioxide 23 Anion Gap 4 L BUN 27 H Creatinine 1.59 H Est GFR ( Amer) 54 L Glucose 102 Calcium 7.9 L 08/25/19 08/25/19 11:21 11:21 Creatine Kinase 344 H CK-MB (CK-2) 0.75 Troponin I 0.012 NT-Pro-B Natriuret Pep 508 H Impressions: Chest X-Ray 08/25/19 11:23 IMPRESSION: Left lower lobe pneumonia. Assessment and Plan - Diagnosis (1) Left lower lobe pneumonia Qualifiers: Pneumonia type: due to unspecified organism Qualified Code(s): J18.9 - Pn eumonia, unspecified organism Is this a current diagnosis for this admission?: Yes Plan: Improved; Leukocytosis is resolved, decreased oxygen needs, improved clinical appearance. T-max 102.5 overnight. Blood cultures NTD Sputum cultures pending Influenza negative. COVID19 pending Patient is provided supplemental oxygen as needed maintain saturations greater than 89%. Patient is empirically placed on IV azithromycin and ceftriaxone for coverage of community-acquired pneumonia He is placed on scheduled and as needed albuterol MDI; will avoid nebulizer secondary to COVID r/o Start daily increase Mucinex twice daily He is placed on Robitussin as needed. Pulmonary toilet is encouraged with incentive spirometer, flutter valve, early ambulation. 08/27/2019 Improved on current regimen. Continue antibiotics. Covid-19 negative. (2) COPD exacerbation Is this a current diagnosis for this admission?: Yes Plan: In addition to the above, patient is placed on p.o. prednisone. 08/27/2019 Improved. Back to room air. Continue inhaler regimen. (3) RUKHSANA (acute kidney injury) Is this a current diagnosis for this admission?: Yes Plan: Improved. The secondary to dehydration in setting of fever, tachypnea, respiratory distress, poor p.o. intake. Patient was admitted with a creatinine/BUN of 2.21/37; baseline 1.6 Received 1 L normal saline bolus followed by IV fluids. We will continue IV fluids. Encourage p.o. intake. Avoid nephrotoxic medications as able. Follow-up chemistry. 08/27/2019 Slowly improving. Continue current regimen and monitor BUN and creatinine. Encourage p.o. fluids. (4) Acute respiratory failure with hypoxia Is this a current diagnosis for this admission?: Yes Plan: Secondary #1-3; complicated by heavy tobacco dependency. Evaluation and management as above. 08/27/2019 Continue current regimen. Already back on room air. (5) Alcohol use Is this a current diagnosis for this admission?: Yes Plan: Nursing reports that the patient urinated in the trash can last night; no other evidence of disorientation/withdrawal. We will start on Folic acid and thiamine. PRN Ativan as needed for withdrawal symptoms. 08/27/2019 No evidence of withdrawal at this time. (6) Tobacco dependence Is this a current diagnosis for this admission?: Yes Plan: Smoking cessation encouraged. Nicotine replacement therapies provided. (7) Suspected COVID-19 virus infection Is this a current diagnosis for this admission?: Yes Plan: CXR shows dense left lobe PNA; typical for bacterial Influenza negative. COVID pending. Lymph% 14.4 D-dimer 3.67; start on full dose Lovenox. CRP 264 Ferritin 340 Start vitamin C, vitamin D, zinc, and melatonin supplementation. Full dose Lovenox. Avoid aerosolizing treatments and procedures. Contact and droplet precautions. 08/27/2019 COVID serology is negative. - Time Time Spent with patient: 15-24 minutes Medications reviewed and adjusted accordingly: Yes Anticipated discharge: Home
[2019-08-27] MEDS: MELATONIN 3 MG TABLET PO SCH (22:37)
[2019-08-27] MEDS: PHARMACY COMMUNICATION ORDER MC SCH (22:37)
[2019-08-28] MEDS: ALBUTEROL SULFATE HFA (90 MCG/PUFF) 8 GM MDI IH SCH ×3 (01:10→12:00)
[2019-08-28] MEDS: NORMAL SALINE 1000 ML 1,000 ML IV PRN (04:03)
[2019-08-28 04:56] LABS: HEMATOCRIT 31.6 % (37.9-51.0); HEMOGLOBIN 10.7 g/dL (13.5-17.0); MEAN CORPUSCULAR HEMOGLOBIN 28.9 pg (27.0-33.4); MEAN CORPUSCULAR HGB CONC 33.8 g/dL (32.0-36.0); MEAN CORPUSCULAR VOLUME 85 fl (80-97); PLATELET COUNT 178 10^3/uL (150-450); RED BLOOD COUNT 3.71 10^6/uL (4.35-5.55); RED CELL DISTRIBUTION WIDTH 14.8 % (11.5-14.0); WHITE BLOOD COUNT 3.3 10^3/uL (4.0-10.5)
[2019-08-28 10:18] LABS: APPEARANCE,URINE CLEAR; BILIRUBIN,URINE NEGATIVE (NEGATIVE); COLOR,URINE YELLOW; GLUCOSE, URINE NEGATIVE (NEGATIVE); KETONES,URINE NEGATIVE (NEGATIVE); LEUKOCYTE ESTERASE,URINE NEGATIVE (NEGATIVE); NITRITE,URINE NEGATIVE (NEGATIVE); PROTEIN,URINE NEGATIVE (NEGATIVE); URINE SPECIFIC GRAVITY 1.015; UROBILINOGEN,URINE NEGATIVE mg/dL (<2.0)
[2019-08-28] MEDS: CHOLECALCIFEROL (D3) 1,000 UNIT (25 MCG) TABLET PO SCH (11:03)
[2019-08-28] MEDS: CEFTRIAXONE 1 GM/D5W RTU 1 GM/50 ML RTUPB IV SCH (11:03)
[2019-08-28] MEDS: FAMOTIDINE 20 MG TABLET PO SCH (11:03)
[2019-08-28] MEDS: THIAMINE HCL 100 MG TABLET PO SCH (11:03)
[2019-08-28] MEDS: ASCORBIC ACID 500 MG TABLET PO SCH (11:03)
[2019-08-28] MEDS: GUAIFENESIN 600 MG TABLET.SA PO SCH (11:03)
[2019-08-28] MEDS: FOLIC ACID 1 MG TABLET PO SCH (11:03)
[2019-08-28] MEDS: NICOTINE 21 MG/24 HR PATCH.TD24 TD SCH (11:04)
[2019-08-28] MEDS: LIDOCAINE 5% (700 MG) TRANSDERMAL ADH..PATCH TP SCH (11:04)
[2019-08-28] MEDS: UMECLIDINIUM BROMIDE 62.5 MCG/DOSE IH SCH (11:05)
[2019-08-28] MEDS: AZITHROMYCIN 500 MG in DEXTROSE 5%-WATER 250 ML IV SCH (11:56)
[2019-08-28] MEDS: ENOXAPARIN SODIUM INJ 80 MG/0.8 ML DISP.SYRIN SUBCUT SCH (12:02)
[2019-08-28] MEDS: ZINC SULFATE 220 MG CAPSULE PO SCH (12:03)
[2019-08-28 16:58] VITALS: BP 130/68
--- NOTE | 2019-08-28 17:00 | PDOC DISCHARGE SUMMARY ---
Impression - Admit/DC Date/PCP Admission Date/Primary Care Provider: 08/25/19 13:12 [facility] Discharge Date: 08/28/19 - Additional Information Resuscitation Status: Full Code Discharge Diet: Regular Discharge Activity: Activity As Tolerated Referrals: [facility] [[facility]] - Follow up as needed (Automated appt. system is unavailable at this time due to a system upgrade. ) Prescriptions: Umeclidinium Mobile [Incruse 62.5 Mcg Ellipta 7 Dose/Dpi] 1 inh IH DAILY #1 inhaler Lidocaine [Lidoderm 5% (700 mg) Transdermal Patch] 1 patch TP DAILY #30 adh..patch Guaifenesin [Mucinex Sr 600 mg Tablet.sa] 600 mg PO Q12 5 Days #10 tablet.sa Nicotine [Nicoderm 21 mg/24 Hr Transderm Patch] 1 each TD DAILY #30 patch.td24 Thiamine HCl [Thiamine 100 mg Tablet] 100 mg PO DAILY #30 tablet Albuterol Sulfate [Ventolin Hfa 8 gm Mdi] 2 puff IH Q4HP PRN #1 inhaler PRN Reason: Azithromycin [Zithromax Tri-Isael] 500 mg PO DAILY 2 Days #2 tablet Home Medications: Albuterol Sulfate [Ventolin Hfa 8 gm Mdi] 2 puff IH Q4HP PRN #1 inhaler 08/28/19 Azithromycin [Zithromax Tri-Isael] 500 mg PO DAILY 2 Days #2 tablet 08/28/19 Guaifenesin [Mucinex Sr 600 mg Tablet.sa] 600 mg PO Q12 5 Days #10 tablet.sa 08/28/19 Lidocaine [Lidoderm 5% (700 mg) Transdermal Patch] 1 patch TP DAILY #30 adh..patch 08/28/19 Nicotine [Nicoderm 21 mg/24 Hr Transderm Patch] 1 each TD DAILY #30 patch.td24 08/28/19 Thiamine HCl [Thiamine 100 mg Tablet] 100 mg PO DAILY #30 tablet 08/28/19 Umeclidinium Mobile [Incruse 62.5 Mcg Ellipta 7 Dose/Dpi] 1 inh IH DAILY #1 inhaler 08/28/19 History of Present Illiness History of Present Illness: Per H&P: "AMIE CRUZ is a 63 year old male with a past medical history of COPD and tobacco dependence with continuous use who presented to the emergency department today with a complaint of sudden onset of shortness of breath 3 days ago that has progressively worsened associated with subjective fevers and chills at home and a nonproductive cough. Evaluation in the emergency department revealed Hypoxia on room air, tachypnea, but otherwise stable vital signs, mild leukocytosis of 11.6, acute kidney injury evidenced by elevated creatinine, BUN, hyponatremia, hyperkalemia, proBNP of 508 with normal troponin. Influenza was negative. Chest x-ray demonstrated a left lower lobe infiltrate. He was provided nebulizer treatments, Solu-Medrol, IV Rocephin and azithromycin, and supplemental oxygen. He is referred to the hospitalist service for admission and management of the above-stated complaints and findings." Hospital Course Hospital Course: Patient admitted with acute left lower lobe pneumonia and COPD exacerbation with hypoxemic respiratory failure. Coronavirus was suspected and this was ruled out with testing. Patient was weaned off supplemental oxygen and no longer required it at discharge. Patient was given IV azithromycin and ceftriaxone for 4 days. He was discharged on azithromycin for 2 additional days to complete treatment. He was counseled extensively on tobacco and alcohol cessation and he states he plans to stop both of these. He will need to follow-up with PCP and pulmonology. His lungs are chronically weak and I counseled him on staying home during the current pandemic. (1) Left lower lobe pneumonia Improved; Leukocytosis is resolved, decreased oxygen needs, improved clinical appearance. T-max 102.5 overnight. Blood cultures NTD Sputum cultures pending Influenza negative. COVID19 neg Patient is provided supplemental oxygen as needed maintain saturations greater than 89%. Patient is empirically placed on IV azithromycin and ceftriaxone for coverage of community-acquired pneumonia He is placed on scheduled and as needed albuterol MDI; will avoid nebulizer secondary to COVID r/o Start daily increase Mucinex twice daily He is placed on Robitussin as needed. Pulmonary toilet is encouraged with incentive spirometer, flutter valve, early ambulation. 08/27/2019 Improved on current regimen. Continue antibiotics. Covid-19 negative. (2) COPD exacerbation In addition to the above, patient is placed on p.o. prednisone. 08/27/2019 Improved. Back to room air. Continue inhaler regimen. (3) RUKHSANA (acute kidney injury) Improved. The secondary to dehydration in setting of fever, tachypnea, respiratory distress, poor p.o. intake. Patient was admitted with a creatinine/BUN of 2.21/37; baseline 1.6 Received 1 L normal saline bolus followed by IV fluids. We will continue IV fluids. Encourage p.o. intake. Avoid nephrotoxic medications as able. Follow-up chemistry. 08/27/2019 Slowly improving. Continue current regimen and monitor BUN and creatinine. Encourage p.o. fluids. (4) Acute respiratory failure with hypoxia Secondary #1-3; complicated by heavy tobacco dependency. Evaluation and management as above. 08/27/2019 Continue current regimen. Already back on room air. (5) Alcohol use Nursing reports that the patient urinated in the trash can last night; no other evidence of disorientation/withdrawal. We will start on Folic acid and thiamine. PRN Ativan as needed for withdrawal symptoms. 08/27/2019 No evidence of withdrawal at this time. (6) Tobacco dependence Smoking cessation encouraged. Nicotine replacement therapies provided. (7) Suspected COVID-19 virus infection CXR shows dense left lobe PNA; typical for bacterial Influenza negative. COVID pending. Lymph% 14.4 D-dimer 3.67; start on full dose Lovenox. CRP 264 Ferritin 340 Start vitamin C, vitamin D, zinc, and melatonin supplementation. Full dose Lovenox. Avoid aerosolizing treatments and procedures. Contact and droplet precautions. 08/27/2019 COVID serology is negative. Physical Exam Vital Signs: Temp Pulse Resp BP Pulse Ox 98.5 F 59 L 18 122/77 99 08/28/19 15:33 08/28/19 15:33 08/28/19 15:33 08/28/19 15:33 08/28/19 15:33 Intake & Output 08/27/19 08/28/19 08/29/19 06:59 06:59 06:59 Intake Total 3536 3820 660 Output Total 2200 925 300 Balance 1336 2895 360 Weight 65.2 kg 65.2 kg General appearance: PRESENT: no acute distress, well-developed, well-nourished Head exam: PRESENT: atraumatic, normocephalic Eye exam: PRESENT: conjunctiva pink Mouth exam: PRESENT: moist Respiratory exam: PRESENT: clear to auscultation alana. ABSENT: rales, rhonchi, wheezes Cardiovascular exam: PRESENT: RRR. ABSENT: diastolic murmur, rubs, systolic murmur GI/Abdominal exam: PRESENT: normal bowel sounds, soft. ABSENT: distended, guarding, mass, organolmegaly, rebound, tenderness Neurological exam: PRESENT: alert, awake, oriented to person, oriented to place, oriented to time, oriented to situation Psychiatric exam: PRESENT: appropriate affect, normal mood Skin exam: PRESENT: dry, intact, warm Results Laboratory Results: WBC 3.3 10^3/uL (4.0-10.5) L 08/28/19 04:47 RBC 3.71 10^6/uL (4.35-5.55) L 08/28/19 04:47 Hgb 10.7 g/dL (13.5-17.0) L 08/28/19 04:47 Hct 31.6 % (37.9-51.0) L 08/28/19 04:47 MCV 85 fl (80-97) 08/28/19 04:47 MCH 28.9 pg (27.0-33.4) 08/28/19 04:47 MCHC 33.8 g/dL (32.0-36.0) 08/28/19 04:47 RDW 14.8 % (11.5-14.0) H 08/28/19 04:47 Plt Count 178 10^3/uL (150-450) 08/28/19 04:47 Lymph % (Auto) Not Reportable 08/26/19 05:55 Schuyler % (Auto) Not Reportable 08/26/19 05:55 Eos % (Auto) Not Reportable 08/26/19 05:55 Baso % (Auto) Not Reportable 08/26/19 05:55 Absolute Neuts (auto) Not Reportable 08/26/19 05:55 Absolute Lymphs (auto) Not Reportable 08/26/19 05:55 Absolute Monos (auto) Not Reportable 08/26/19 05:55 Absolute Eos (auto) Not Reportable 08/26/19 05:55 Absolute Basos (auto) Not Reportable 08/26/19 05:55 Total Counted 100 08/26/19 05:55 Seg Neutrophils % Not Reportable 08/26/19 05:55 Seg Neuts % (Manual) 69 % (42-78) 08/26/19 05:55 Band Neutrophils % 10 % (3-5) H 08/26/19 05:55 Lymphocytes % (Manual) 18 % (13-45) 08/26/19 05:55 Monocytes % (Manual) 3 % (3-13) 08/26/19 05:55 Eosinophils % (Manual) 0 % (0-6) 08/26/19 05:55 Basophils % (Manual) 0 % (0-2) 08/26/19 05:55 Abs Neuts (Manual) 6.0 10^3/uL (1.7-8.2) 08/26/19 05:55 Abs Lymphs (Manual) 1.4 10^3/uL (0.5-4.7) 08/26/19 05:55 Abs Monocytes (Manual) 0.2 10^3/uL (0.1-1.4) 08/26/19 05:55 Absolute Eos (Manual) 0.0 10^3/uL (0.0-0.6) 08/26/19 05:55 Abs Basophils (Manual) 0.0 10^3/uL (0.0-0.2) 08/26/19 05:55 Platelet Comment ADEQUATE 08/26/19 05:55 Polychromasia 1+ 08/26/19 05:55 Anisocytosis 1+ 08/26/19 05:55 D-Dimer 3.67 ug/mL (0.00-0.50) H 08/25/19 11:21 Sodium 136.2 mmol/L (137-145) L 08/27/19 04:14 Potassium 3.8 mmol/L (3.6-5.0) 08/27/19 04:14 Chloride 109 mmol/L (98-107) H 08/27/19 04:14 Carbon Dioxide 23 mmol/L (22-30) 08/27/19 04:14 Anion Gap 4 (5-19) L 08/27/19 04:14 BUN 27 mg/dL (7-20) H 08/27/19 04:14 Creatinine 1.59 mg/dL (0.52-1.25) H 08/27/19 04:14 Est GFR ( Amer) 54 (>60) L 08/27/19 04:14 Est GFR (MDRD) Non-Af 44 (>60) L 08/27/19 04:14 Glucose 102 mg/dL (75-110) 08/27/19 04:14 Calcium 7.9 mg/dL (8.4-10.2) L 08/27/19 04:14 Ferritin 340.00 ng/mL (17.9-464.0) 08/25/19 11:21 Total Bilirubin 1.3 mg/dL (0.2-1.3) 08/25/19 11:21 Direct Bilirubin 0.1 mg/dL (0.0-0.4) 08/25/19 11:21 Neonat Total Bilirubin Not Reportable 08/25/19 11:21 Neonat Direct Bilirubin Not Reportable 08/25/19 11:21 Neonat Indirect Bili Not Reportable 08/25/19 11:21 AST 51 U/L (17-59) 08/25/19 11:21 ALT 31 U/L (<50) 08/25/19 11:21 Alkaline Phosphatase 70 U/L (38-126) 08/25/19 11:21 Creatine Kinase 344 U/L (55-170) H 08/25/19 11:21 CK-MB (CK-2) 0.75 ng/mL (<4.55) 08/25/19 11:21 Troponin I 0.012 ng/mL 08/25/19 11:21 C-Reactive Protein 264.2 mg/L (<10.0) H 08/25/19 11:21 NT-Pro-B Natriuret Pep 508 pg/mL (<125) H 08/25/19 11:21 Total Protein 8.0 g/dL (6.3-8.2) 08/25/19 11:21 Albumin 4.4 g/dL (3.5-5.0) 08/25/19 11:21 Urine Color YELLOW 08/28/19 10:00 Urine Appearance CLEAR 08/28/19 10:00 Urine pH 5.0 (5.0-9.0) 08/28/19 10:00 Ur Specific [place] 1.015 08/28/19 10:00 Urine Protein NEGATIVE mg/dL (NEGATIVE) 08/28/19 10:00 Urine Glucose (UA) NEGATIVE mg/dL (NEGATIVE) 08/28/19 10:00 Urine Ketones NEGATIVE mg/dL (NEGATIVE) 08/28/19 10:00 Urine Blood NEGATIVE (NEGATIVE) 08/28/19 10:00 Urine Nitrite NEGATIVE (NEGATIVE) 08/28/19 10:00 Urine Bilirubin NEGATIVE (NEGATIVE) 08/28/19 10:00 Urine Urobilinogen NEGATIVE mg/dL (<2.0) 08/28/19 10:00 Ur Leukocyte Esterase NEGATIVE (NEGATIVE) 08/28/19 10:00 Urine WBC (Auto) 1 /HPF 08/28/19 10:00 Urine RBC (Auto) 0 /HPF 08/28/19 10:00 U Hyaline Cast (Auto) 3 /LPF 08/26/19 07:50 Squamous Epi Cells Auto <1 /HPF 08/28/19 10:00 Urine Mucus (Auto) RARE /LPF 08/28/19 10:00 Urine Ascorbic Acid 40 (NEGATIVE) H 08/28/19 10:00 COVID-19 Source NASOPHARYNGEAL 08/25/19 14:08 COVID-19 (THAO) NOT DETECTED 08/25/19 14:08 Influenza A (Rapid) NEGATIVE (NEGATIVE) 08/25/19 12:48 Influenza B (Rapid) NEGATIVE (NEGATIVE) 08/25/19 12:48 08/25/19 11:21 CK-MB (CK-2) 0.75 Troponin I 0.012 NT-Pro-B Natriuret Pep 508 H Impressions: Chest X-Ray 08/25/19 11:23 IMPRESSION: Left lower lobe pneumonia. Plan Time Spent: Greater than 30 Minutes Stroke Is this a Stroke Patient?: No Acute Heart Failure - Is this a Heart Failure Patient?: No
[2019-08-29] MEDS ORDERED: ENOXAPARIN SODIUM INJ 40 MG/0.4 ML DISP.SYRIN SUBCUT SCH (10:00)
== END 2019-08-28 17:10 | disposition home or self-care (01) | DRG 190 ==
LOC: ER 11:16 → EH 13:12 → 5 16:44 → 4S 08-27 15:33
PROVIDERS: ADMIT Internal Medicine; ATTEND Internal Medicine
DX: J44.1 Chronic obstructive pulmonary disease with (acute) exacerbation (principal); J18.9 Pneumonia, unspecified organism; J96.01 Acute respiratory failure with hypoxia; N17.9 Acute kidney failure, unspecified; E87.1 Hypo-osmolality and hyponatremia; J44.0 Chronic obstructive pulmonary disease with (acute) lower respiratory infection; E86.0 Dehydration; E87.5 Hyperkalemia; F17.210 Nicotine dependence, cigarettes, uncomplicated; Z60.2 Problems related to living alone; Z03.818 Encounter for observation for suspected exposure to other biological agents ruled out; Z79.899 Other long term (current) drug therapy; Z72.89 Other problems related to lifestyle
CPT/HCPCS: 36415; 71045; 80048; 80053; 81001; 82550; 82553; 82728; 83880; 84484; 85025; 85027; 85379; 86140; 87040; 87070; 87205; 87635; 87804; 93005; 93010; 94799; 96365; 99285; J0456; J0696; J1650; J3490; J7030; J7060

== ENCOUNTER 2019-10-24 10:24 | Emergency (ER) | payer OTHER ==
--- NOTE | 2019-10-24 10:50 | ER Document Report ---
ED General - General Chief Complaint: Shortness Of Breath Stated Complaint: SHORTNESS OF BREATH Time Seen by Provider: 10/24/19 10:28 [facility] [[facility]] - Follow up as needed TRAVEL OUTSIDE OF THE [place] IN LAST 30 DAYS: No - HPI Notes: Chief complaint: Transient shortness of breath and productive cough History of present illness: 64-year-old male with longstanding history of COPD and ongoing smoking of cigars now presents with transient shortness of breath ye sterday during exertion shortly after smoking 2 cigars. He says he is not smoked any since then. He also reports that he is coughing up some yellow sputum. He denies hemoptysis. He denies chest pain. He denies fever or chills. Patient has been using metered-dose inhalers at home but apparently has run out of his albuterol. Patient was previously hospitalized here about 6 weeks ago for a left lower lobe pneumonia and COPD exacerbation. He was treated with Zithromax at that time and experienced resolution of symptoms within several days of starting the antibiotic. He was also briefly on steroids at that time but is no longer on steroids. He does not use any oxygen at home. He is followed by the [place] [facility]. We note that the patient underwent COVID testing at the time of his recent hospitalization and the study was negative. Current medications: Umeclidinium [place] [Incruse 62.5 Mcg Ellipta 7 Dose/Dpi] 1 inh IH DAILY #1 inhaler Lidocaine [Lidoderm 5% (700 mg) Transdermal Patch] 1 patch TP DAILY #30 adh..patch Thiamine HCl [Thiamine 100 mg Tablet] 100 mg PO DAILY #30 tablet Albuterol Sulfate [Ventolin Hfa 8 gm Mdi] 2 puff IH Q4HP PRN #1 inhaler Albuterol Sulfate [Ventolin Hfa 8 gm Mdi] 2 puff IH Q4HP PRN #1 inhaler - Related Data Allergies/Adverse Reactions: No Known Allergies Allergy (Unverified 03/23/19 17:26) Past Medical History - General Information source: Patient, [facility] Records - Social History Smoking Status: Current Every Day Smoker Frequency of alcohol use: Social Drug Abuse: None Lives with: Family Family History: Reviewed & Not Pertinent Pulmonary Medical History: Reports: Hx Asthma, Hx COPD Past Surgical History: Reports: Other - Eye surgery - Immunizations Hx Diphtheria, Pertussis, Tetanus Vaccination: No Review of Systems - Review of Systems Notes: Constitutional: Negative for fever. HENT: Negative for sore throat. Eyes: Negative for visual changes. Cardiovascular: Negative for chest pain. Respiratory: As per HPI. Gastrointestinal: Negative for abdominal pain, vomiting or diarrhea. Genitourinary: Negative for dysuria. Musculoskeletal: Negative for back pain. Skin: Negative for rash. Neurological: Negative for headaches, weakness or numbness. 10 point ROS negative except as marked above and in HPI. Physical Exam - Vital signs Vitals: Temp Pulse BP Pulse Ox 97.8 F 63 160/91 H 100 10/24/19 10:31 10/24/19 10:31 10/24/19 10:31 10/24/19 10:31 - Notes Notes: GENERAL: Slender male approximately stated age appearing in no acute distress. SKIN: Moderately dry. Good turgor no rashes. HEAD: Normocephalic atraumatic. EYES: PERRLA. EOMI. Conjunctivae and sclerae clear. EARS: CANALS AND TMS CLEAR. NOSE: CLEAR. MOUTH: Moist mucosa. Good dentition. No stridor or edema. No drooling. NECK: Supple. No masses or thyromegaly. No adenopathy. Carotids 2+ without bruits. No JVD. BACK: Symmetrical without tenderness. CHEST: Respirations unlabored. Few faint end expiratory wheezes bilaterally. Breath sounds are symmetrical. HEART: Regular rhythm. No murmur gallop or rub. ABDOMEN: Soft nontender without masses, organomegaly or rebound. Bowel sounds normally active. No bruits. GENITALIA: Deferred. EXTREMITIES: 3+ clubbing upper extremities. No edema. No calf tenderness. Cap refill less than 1.5 seconds. Dorsalis pedis and posterior tibial pulses 3+ and symmetrical. NEUROLOGICAL: GCS 15. Alert and oriented x3. Normal gait. Fluent speech. Cranial nerves II through XII intact. Sensorimotor and cerebellar normal. Normal tone. PSYCHIATRIC: Appropriate affect. Course - Re-evaluation Re-evalutation: 10/24/19 11:54 Patient is noted to have a new small left pleural effusion. We note that he was treated for pneumonia of the left lower lobe within the last 6 weeks. This is probably a sympathetic effusion related to recent pneumonia. He is however a heavy smoker and has ongoing COPD symptoms. I am going to get a chest CT with contrast to be sure he does not have a developing neoplasm that is being overlooked. 10/24/19 13:25 CT of the chest with contrast reviewed by radiologist and shows evidence of a small left pleural effusion with no other obvious abnormalities. I suspect this is a sympathetic effusion related to the recent left lower lobe pneumonia. I have encouraged this man to stop smoking. I will send him home on a short course of prednisone and doxycycline and I have also refilled his Ventolin inhaler. He needs to see his primary provider for a repeat chest x-ray within the next 10 to 14 days. Findings, clinical impression and plan of treatment have been discussed with patient/family. Understanding of current findings and recommendations has been acknowledged by them and there is agreement regarding disposition and follow-up. - Vital Signs Vital signs: Temp Pulse Resp BP Pulse Ox 97.8 F 63 160/91 H 100 10/24/19 11:37 10/24/19 10:31 10/24/19 10:31 10/24/19 10:31 - Laboratory Result Diagrams: 10/24/19 11:04 10/24/19 11:04 Laboratory results interpreted by me: 10/24/19 10/24/19 11:04 11:04 Hgb 13.3 L RDW 15.5 H Eos % (Auto) 13.1 H Potassium 5.2 H Anion Gap 4 L BUN 24 H Creatinine 1.54 H Est GFR ( Amer) 55 L Est GFR (MDRD) Non-Af 46 L Discharge - Discharge Clinical Impression: Acute exacerbation of chronic obstructive pulmonary disease (COPD), Pleural effusion, left Condition: Stable Disposition: HOME, SELF-CARE Additional Instructions: Stop smoking. Take prescribed medications as directed. See your doctor at the [place] [facility] for follow-up chest x-ray for evaluation of fluid in your chest within the next 10 to 14 days. Return here as needed for new or worsening symptoms: Pain that is worsening or unimproved Uncontrolled vomiting High fever or shaking chills Overall worsening Prescriptions: Prednisone [Deltasone 20 mg Tablet] 2 tab PO DAILY 5 Days tablet Albuterol Sulfate [Proair HFA Inhalation Aerosol 8.5 gm MDI] 2 puff IH Q4H PRN #1 mdi PRN Reason: Forms: Smoking Cessation Education [facility] [[facility]] - Follow up as needed
[2019-10-24 11:17] LABS: ABSOLUTE EOSINOPHILS # (AUTO) 0.6 10^3/uL (0.0-0.6); ABSOLUTE LYMPHOCYTES (AUTO) 1.3 10^3/uL (0.5-4.7); ABSOLUTE MONOCYTES (AUTO) 0.5 10^3/uL (0.1-1.4); ABSOLUTE NEUT (AUTO) 1.9 10^3/uL (1.7-8.2); BASOPHILS % (AUTO) 0.8 % (0-2); EOSINOPHILS % (AUTO) 13.1 % (0-6); HEMATOCRIT 40.6 % (37.9-51.0); HEMOGLOBIN 13.3 g/dL (13.5-17.0); LYMPHOCYTES % (AUTO) 29.7 % (13-45); MEAN CORPUSCULAR HEMOGLOBIN 28.1 pg (27.0-33.4); MEAN CORPUSCULAR HGB CONC 32.7 g/dL (32.0-36.0); MEAN CORPUSCULAR VOLUME 86 fl (80-97); PLATELET COUNT 244 10^3/uL (150-450); RED BLOOD COUNT 4.74 10^6/uL (4.35-5.55); RED CELL DISTRIBUTION WIDTH 15.5 % (11.5-14.0); SEGMENTED NEUTROPHILS % (AUTO) 44.4 % (42-78); TOTAL CELLS COUNTED % (AUTO) 100 %; WHITE BLOOD COUNT 4.3 10^3/uL (4.0-10.5)
--- NOTE | 2019-10-24 11:20 | RADIOLOGY REPORT (SQ) ---
EXAM DESCRIPTION: CHEST SINGLE VIEW IMAGES COMPLETED DATE/TIME: 10/24/2019 11:07 am REASON FOR STUDY: cough COMPARISON: 10/24/2019 EXAM PARAMETERS: NUMBER OF VIEWS: One view. TECHNIQUE: Single frontal radiographic view of the chest acquired. RADIATION DOSE: NA LIMITATIONS: None. FINDINGS: LUNGS AND PLEURA: There is a small left pleural effusion. The right lung is clear. MEDIASTINUM AND HILAR STRUCTURES: No masses. Contour normal. HEART AND VASCULAR STRUCTURES: Heart normal in size. Normal vasculature. BONES: No acute findings. HARDWARE: None in the chest. OTHER: No other significant finding. IMPRESSION: Left pleural effusion. TECHNICAL DOCUMENTATION: JOB ID: [id number] 2010 [employer]- All Rights Reserved Reading location - IP/workstation name: [email or web address]
[2019-10-24 11:38] LABS: BLOOD UREA NITROGEN 24 mg/dL (7-20); CALCIUM 9.6 mg/dL (8.4-10.2); CARBON DIOXIDE 29 mmol/L (22-30); CHLORIDE 106 mmol/L (98-107); GLUCOSE 94 mg/dL (75-110); POTASSIUM 5.2 mmol/L (3.6-5.0)
[2019-10-24 11:45] LABS: ANION GAP 4 (5-19)
--- NOTE | 2019-10-24 12:45 | RADIOLOGY REPORT (SQ) ---
EXAM DESCRIPTION: CT CHEST WITH IMAGES COMPLETED DATE/TIME: 10/24/2019 12:31 pm REASON FOR STUDY: left pleural effusion, smoker COMPARISON: Chest x-ray 10/24/2019 TECHNIQUE: CT scan of the chest performed using helical scanning technique with dynamic intravenous contrast injection. Images reviewed with lung, soft tissue and bone windows. Reconstructed coronal and sagittal MPR and MIP images reviewed. All images stored on PACS. All CT scanners at this facility use dose modulation, iterative reconstruction, and/or weight based d osing when appropriate to reduce radiation dose to as low as reasonably achievable (ALARA). [facility]: Dose Right [facility]: CareDose [facility]: Dose Right [facility]: Teradose 4D [facility]: [employer] CONTRAST TYPE AND DOSE: 80 cc Omnipaque 350- low osmolar. RENAL FUNCTION: BUN 24 creatinine 1.54 RADIATION DOSE: CT Rad equipment meets quality standard of care and radiation dose reduction techniq ues were employed. CTDIvol: 6.1 mGy. DLP: 314 mGy-cm. . LIMITATIONS: None. FINDINGS: LUNGS AND PLEURA: Centrilobular emphysematous changes. Small left pleural effusion. No m ass. No acute infiltrate. HILAR AND MEDIASTINAL STRUCTURES: No identified masses or abnormal nodes. HEART AND VASCULAR STRUCTURES: No aneurysm or dissection. No central pulmonary emboli. No pericardi al effusion. HARDWARE: None in the chest. UPPER ABDOMEN: No significant findings. Limited exam. THYROID AND OTHER SOFT TISSUES: No masses. No adenopathy. BONES: No significant finding. OTHER: No other significant finding. IMPRESSION: Centrilobular emphysema. Small left pleural effusion. No other significant finding. TECHNICAL DOCUMENTATION: JOB ID: [id number] Quality ID # [id number]: Final reports with documentation of one or more dose reduction techniques (e.g., Au tomated exposure control, adjustment of the mA and/or kV according to patient size, use of iterative reconstruction technique) 2010 [employer]- All Rights Reserved Reading location - IP/workstation name: [email or web address]
[2019-10-24 14:39] VITALS: BP 130/74
== END 2019-10-24 14:17 | disposition home or self-care (01) ==
LOC: ER 10:24
DX: J43.9 Emphysema, unspecified (principal); F17.290 Nicotine dependence, other tobacco product, uncomplicated; J90 Pleural effusion, not elsewhere classified; R06.02 Shortness of breath; Z79.899 Other long term (current) drug therapy; Z87.01 Personal history of pneumonia (recurrent)
CPT/HCPCS: 36415; 71045; 71260; 80048; 85025; 99284

== ENCOUNTER 2020-02-20 10:50 | Emergency (ER) | payer OTHER ==
[2020-02-20] MEDS ORDERED: IPRATROPIUM/ALBUTEROL 0.5-2.5 MG/3 ML AMPUL NEB ONE ×2 (11:02→13:11)
--- NOTE | 2020-02-20 11:03 | ER Document Report ---
ED Medical Screen (RME) - General Chief Complaint: Breathing Difficulty Stated Complaint: SHORT OF BREATH Time Seen by Provider: 02/20/20 10:57 Primary Care Provider: TIA MALIK [Primary Care Provider] - Follow up as needed Information source: Patient Notes: Patient presents complaining of cough for the past week with shortness of breath. Patient denies any chest pain. Patient denies any fever, nausea or vomiting. Patient does report a history of COPD and reports no improvement with use of his inhaler at home. I have greeted and performed a rapid initial assessment of this patient. A comprehensive ED assessment and evaluation of the patient, analysis of test results and completion of the medical decision making process will be conducted by additional ED providers. TRAVEL OUTSIDE OF THE [place] IN LAST 30 DAYS: No - Related Data Allergies/Adverse Reactions: No Known Allergies Allergy (Unverified 03/23/19 17:26) Past Medical History Pulmonary Medical History: Reports: Hx Asthma, Hx COPD Past Surgical History: Reports: Other - Eye surgery - Immunizations Hx Diphtheria, Pertussis, Tetanus Vaccination: No Physical Exam - Respiratory Respiratory status: No respiratory distress Breath sounds: Nonproductive cough, Wheezing - Bilateral bases, left worse than right Doctor's Discharge - Discharge Referrals: [facility] [Primary Care Provider] - Follow up as needed
--- NOTE | 2020-02-20 12:17 | RADIOLOGY REPORT (SQ) ---
EXAM DESCRIPTION: CHEST SINGLE VIEW IMAGES COMPLETED DATE/TIME: 02/20/2020 11:37 am REASON FOR STUDY: sob COMPARISON: None. EXAM PARAMETERS: NUMBER OF VIEWS: One view. TECHNIQUE: Single frontal radiographic view of the chest acquired. RADIATION DOSE: NA LIMITATIONS: None. FINDINGS: LUNGS AND PLEURA: No opacities, masses or pneumothorax. No pleural effusion. MEDIASTINUM AND HILAR STRUCTURES: No masses. Contour normal. HEART AND VASCULAR STRUCTURES: Heart normal in size. Normal vasculature. BONES: No acute findings. HARDWARE: None in the chest. OTHER: No other significant finding. IMPRESSION: NO ACUTE RADIOGRAPHIC FINDING IN THE CHEST. TECHNICAL DOCUMENTATION: JOB ID: [id number] 2010 [employer]- All Rights Reserved Reading location - IP/workstation name: [email or web address]
[2020-02-20 12:42] LABS: ABSOLUTE BASOPHILS # (AUTO) 0.1 10^3/uL (0.0-0.2); ABSOLUTE EOSINOPHILS # (AUTO) 0.7 10^3/uL (0.0-0.6); ABSOLUTE LYMPHOCYTES (AUTO) 1.6 10^3/uL (0.5-4.7); ABSOLUTE MONOCYTES (AUTO) 0.6 10^3/uL (0.1-1.4); ABSOLUTE NEUT (AUTO) 2.5 10^3/uL (1.7-8.2); EOSINOPHILS % (AUTO) 12.6 % (0-6); HEMATOCRIT 43.4 % (37.9-51.0); HEMOGLOBIN 14.8 g/dL (13.5-17.0); LYMPHOCYTES % (AUTO) 28.9 % (13-45); MEAN CORPUSCULAR HEMOGLOBIN 29.7 pg (27.0-33.4); MEAN CORPUSCULAR HGB CONC 34.1 g/dL (32.0-36.0); MEAN CORPUSCULAR VOLUME 87 fl (80-97); MONOCYTES % (AUTO) 10.8 % (3-13); PLATELET COUNT 225 10^3/uL (150-450); RED BLOOD COUNT 4.99 10^6/uL (4.35-5.55); RED CELL DISTRIBUTION WIDTH 14.8 % (11.5-14.0); SEGMENTED NEUTROPHILS % (AUTO) 46.7 % (42-78); TOTAL CELLS COUNTED % (AUTO) 100 %; WHITE BLOOD COUNT 5.4 10^3/uL (4.0-10.5)
[2020-02-20 13:06] LABS: ALBUMIN 4.6 g/dL (3.5-5.0); ALKALINE PHOSPHATASE 77 U/L (38-126); ANION GAP 7 (5-19); ASPARTATE AMINO TRANSFERASE 44 U/L (17-59); BILIRUBIN,DIRECT 0.2 mg/dL (0.0-0.4); BILIRUBIN,TOTAL 0.8 mg/dL (0.2-1.3); BLOOD UREA NITROGEN 16 mg/dL (7-20); CALCIUM 9.6 mg/dL (8.4-10.2); CARBON DIOXIDE 31 mmol/L (22-30); CHLORIDE 102 mmol/L (98-107); GLUCOSE 94 mg/dL (75-110); POTASSIUM 4.7 mmol/L (3.6-5.0); TOTAL PROTEIN 8.3 g/dL (6.3-8.2)
--- NOTE | 2020-02-20 13:06 | ER Document Report ---
ED General - General Chief Complaint: Shortness Of Breath Stated Complaint: SHORT OF BREATH Time Seen by Provider: 02/20/20 10:57 Primary Care Provider: TIA MALIK [Primary Care Provider] - Follow up as needed TRAVEL OUTSIDE OF THE [place] IN LAST 30 DAYS: No - HPI Notes: ED General - General Chief Complaint: Shortness Of Breath Stated Complaint: SHORTNESS OF BREATH Time Seen by Provider: 10/24/19 10:28 Primary Care Provider: TIA MALIK [Primary Care Provider] - Follow up as needed TRAVEL OUTSIDE OF THE [place] IN LAST 30 DAYS: No - HPI Notes: Chief complaint: Transient shortness of breath and productive cough History of present illness: 64-year-old male with longstanding history of COPD and ongoing smoking of cigars now presents with transient shortness of breath yesterday during exertion shortly after smoking 2 cigars. He says he is not smoked any since then. He also reports that he is coughing up some yellow sputum. He denies hemoptysis. He denies chest pain. He denies fever or chills. Patient has been using metered-dose inhalers at home but apparently has run out of his albuterol. Patient was previously hospitalized here about 6 weeks ago for a left lower lobe pneumonia and COPD exacerbation. He was treated with Zithromax at that time and experienced resolution of symptoms within several days of starting the antibiotic. He was also briefly on steroids at that time but is no longer on steroids. He does not use any oxygen at home. He is followed by [facility]. Patient was seen with identical presentation me in this emergency department about 6 weeks ago. He continues to smoke a couple cigars per day. He denies any recent COVID exposure. Current medications: Umeclidinium [place] [Incruse 62.5 Mcg Ellipta 7 Dose/Dpi] 1 inh IH DAILY #1 inhaler Lidocaine [Lidoderm 5% (700 mg) Transdermal Patch] 1 patch TP DAILY #30 adh..patch Thiamine HCl [Thiamine 100 mg Tablet] 100 mg PO DAILY #30 tablet Albuterol Sulfate [Ventolin Hfa 8 gm Mdi] 2 puff IH Q4HP PRN #1 inhaler Albuterol Sulfate [Ventolin Hfa 8 gm Mdi] 2 puff IH Q4HP PRN #1 inhaler 08/28/19 Review of Systems - Review of Systems Notes: Constitutional: Negative for fever. HENT: Negative for sore throat. Eyes: Negative for visual changes. Cardiovascular: Negative for chest pain. Respiratory: As per HPI. Gastrointestinal: Negative for abdominal pain, vomiting or diarrhea. Genitourinary: Negative for dysuria. Musculoskeletal: Negative for back pain. Skin: Negative for rash. Neurological: Negative for headaches, weakness or numbness. 10 point ROS negative except as marked above and in HPI. Physical Exam - Vital signs Vitals: Temp Pulse BP Pulse Ox 97.8 F 63 160/91 H 100 10/24/19 10:31 10/24/19 10:31 10/24/19 10:31 10/24/19 10:31 - Notes Notes: GENERAL: Slender male approximately stated age appearing in no acute distress. SKIN: Moderately dry. Good turgor no rashes. HEAD: Normocephalic atraumatic. EYES: PERRLA. EOMI. Conjunctivae and sclerae clear. EARS: CANALS AND TMS CLEAR. NOSE: CLEAR. MOUTH: Moist mucosa. Good dentition. No stridor or edema. No drooling. NECK: Supple. No masses or thyromegaly. No adenopathy. Carotids 2+ without bruits. No JVD. BACK: Symmetrical without tenderness. CHEST: Respirations unlabored. Few faint end expiratory wheezes bilaterally. Breath sounds are symmetrical. HEART: Regular rhythm. No murmur gallop or rub. ABDOMEN: Soft nontender without masses, organomegaly or rebound. Bowel sounds n ormally active. No bruits. GENITALIA: Deferred. EXTREMITIES: 3+ clubbing upper extremities. No edema. No calf tenderness. Cap refill less than 1.5 seconds. Dorsalis pedis and posterior tibial pulses 3+ and symmetrical. NEUROLOGICAL: GCS 15. Alert and oriented x3. Normal gait. Fluent speech. Cranial nerves II through XII intact. Sensorimotor and cerebellar normal. Normal tone. PSYCHIATRIC: Appropriate affect. Course - Re-evaluation Re-evalutation: 10/24/19 11:54 Patient is noted to have a new small left pleural effusion. We note that he was treated for pneumonia of the left lower lobe within the last 6 weeks. This is probably a sympathetic effusion related to recent pneumonia. He is however a heavy smoker and has ongoing COPD symptoms. I am going to get a chest CT with contrast to be sure he does not have a developing neoplasm that is being overlooked. 10/24/19 13:25 CT of the chest with contrast reviewed by radiologist and shows evidence of a small left pleural effusion with no other obvious abnormalities. I suspect this is a sympathetic effusion related to the recent left lower lobe pneumonia. I have encouraged this man to stop smoking. I will send him home on a short course of prednisone and doxycycline and I have also refilled his Ventolin inhaler. He needs to see his primary provider for a repeat chest x-ray within the next 10 to 14 days. Findings, clinical impression and plan of treatment have been discussed with patient/family. Understanding of current findings and recommendations has been acknowledged by them and there is agreement regarding disposition and follow-up. - Vital Signs Vital signs: Temp Pulse Resp BP Pulse Ox 97.8 F 63 160/91 H 100 10/24/19 11:37 10/24/19 10:31 10/24/19 10:31 10/24/19 10:31 - Laboratory Result Diagrams: 10/24/19 11:04 10/24/19 11:04 Laboratory results interpreted by me: 10/24/19 10/24/19 11:04 11:04 Hgb 13.3 L RDW 15.5 H Eos % (Auto) 13.1 H Potassium 5.2 H Anion Gap 4 L BUN 24 H Creatinine 1.54 H Est GFR ( Amer) 55 L Est GFR (MDRD) Non-Af 46 L Discharge - Discharge Clinical Impression: Acute exacerbation of chronic obstructive pulmonary disease (COPD), Pleural effusion, left Condition: Stable Disposition: HOME, SELF-CARE Additional Instructions: Stop smoking. Take prescribed medications as directed. See your doctor at the [facility] for follow-up chest x-ray for evaluation of fluid in your chest within the next 10 to 14 days. Return here as needed for new or worsening symptoms: Pain that is worsening or unimproved Uncontrolled vomiting High fever or shaking chills Overall worsening Prescriptions: Prednisone [Deltasone 20 mg Tablet] 2 tab PO DAILY 5 Days tablet Albuterol Sulfate [Proair HFA Inhalation Aerosol 8.5 gm MDI] 2 puff IH Q4H PRN #1 mdi PRN Reason: Forms: Smoking Cessation Education Referrals: [facility] [Primary Care [facility]] - Follow up as needed - Related Data Allergies/Adverse Reactions: No Known Allergies Allergy (Unverified 03/23/19 17:26) Past Medical History - General Information source: Patient, [facility] Records - Social History Smoking Status: Current Every Day Smoker Frequency of alcohol use: Social Drug Abuse: Cocaine, Marijuana Family History: Reviewed & Not Pertinent Patient has homicidal ideation: No Pulmonary Medical History: Reports: Hx Asthma, Hx COPD Past Surgical History: Reports: Other - Eye surgery - Immunizations Hx Diphtheria, Pertussis, Tetanus Vaccination: No Review of Systems - Review of Systems Notes: Review of Systems - Review of Systems Notes: Constitutional: Negative for fever. HENT: Negative for sore throat. Eyes: Negative for visual changes. Cardiovascular: Negative for chest pain. Respiratory: As per HPI. Gastrointestinal: Negative for abdominal pain, vomiting or diarrhea. Genitourinary: Negative for dysuria. Musculoskeletal: Negative for back pain. Skin: Negative for rash. Neurological: Negative for headaches, weakness or numbness. 10 point ROS negative except as marked above and in HPI. Physical Exam - Vital signs Vitals: Pulse Ox 99 02/20/20 11:26 - Notes Notes: Physical Exam GENERAL: Slender male approximately stated age appearing in no acute distress. SKIN: Moderately dry. Good turgor no rashes. HEAD: Normocephalic atraumatic. EYES: PERRLA. EOMI. Conjunctivae and sclerae clear. EARS: CANALS AND TMS CLEAR. NOSE: CLEAR. MOUTH: Moist mucosa. Very poor dentition. No stridor or edema. No drooling. NECK: Supple. No masses or thyromegaly. No adenopathy. Carotids 2+ without bruits. No JVD. BACK: Symmetrical without tenderness. CHEST: Respirations unlabored. Few faint end expiratory wheezes bilaterally. Breath sounds are symmetrical. HEART: Regular rhythm. No murmur gallop or rub. ABDOMEN: Soft nontender without masses, organomegaly or rebound. Bowel sounds normally active. No bruits. GENITALIA: Deferred. EXTREMITIES: 3+ clubbing upper extremities. No edema. No calf tenderness. Cap refill less than 1.5 seconds. Dorsalis pedis and posterior tibial pulses 3+ and symmetrical. NEUROLOGICAL: GCS 15. Alert and oriented x3. Normal gait. Fluent speech. Cranial nerves II through XII intact. Sensorimotor and cerebellar normal. Normal tone. PSYCHIATRIC: Appropriate affect. Course - Re-evaluation Re-evalutation: 10/08/20 14:14 Findings consistent with COPD exacerbation. Patient was given IV Rocephin and IV Solu-Medrol. He also received 2 DuoNeb treatments. He is oxygenating normally is hemodynamically stable and afebrile. X-ray shows no focal infiltrates. He is run out of his metered-dose inhaler for albuterol and this will be refilled. I have again advised him to stop smoking. I think he is stable to follow-up with his [facility] physician as an outpatient. Findings, clinical impression and plan of treatment have been discussed with patient/family. Understanding of current findings and recommendations has been acknowledged by them and there is agreement regarding disposition and follow-up. - Vital Signs Vital signs: Temp Pulse Resp BP Pulse Ox 21 H 131/81 H 100 02/20/20 12:18 02/20/20 12:18 02/20/20 12:18 - Laboratory Result Diagrams: 02/20/20 12:26 02/20/20 12:26 Laboratory results interpreted by me: 02/20/20 02/20/20 12:26 12:26 RDW 14.8 H Eos % (Auto) 12.6 H Absolute Eos (auto) 0.7 H Carbon Dioxide 31 H Creatinine 1.41 H Est GFR (MDRD) Non-Af 51 L Total Protein 8.3 H - Diagnostic Test Radiology reviewed: Reports reviewed - Per radiologist: Chest x-ray shows hyperinflation consistent with COPD. No focal infiltrate. Discharge - Discharge Clinical Impression: COPD exacerbation Condition: Stable Disposition: HOME, SELF-CARE Additional Instructions: Stop smoking. Take prescribed medications. Return here as needed for new or worsening symptoms: Pain that is worsening or unimproved Uncontrolled vomiting High fever or shaking chills Overall worsening Follow-up with your physician at the [facility]. Prescriptions: Prednisone [Deltasone 20 mg Tablet] 2 tab PO DAILY 5 Days tablet Doxycycline Monohydrate 100 mg PO BID #20 capsule Albuterol Sulfate [Proair HFA Inhalation Aerosol 8.5 gm MDI] 2 puff IH Q4H PRN #1 mdi PRN Reason: Forms: Smoking Cessation Education Referrals: [facility] [Primary Care [facility]] - Follow up as needed
[2020-02-20] MEDS ORDERED: CEFTRIAXONE INJ 1000 MG VIAL IV ONE (13:11)
[2020-02-20] MEDS ORDERED: METHYLPREDNISOLONE INJ 125 MG/2 ML SDV IV ONE (13:11)
[2020-02-20 13:18] LABS: NT PRO BNP 97 pg/mL (<125); TROPONIN I < 0.012 ng/mL
[2020-02-20 14:34] VITALS: BP 132/81
--- NOTE | 2020-02-20 19:19 | EKG REPORT ---
SEVERITY:- ABNORMAL ECG - SINUS RHYTHM BIATRIAL ABNORMALITIES : Confirmed by: Arlene Abreu MD 20-Feb-2020 19:19:18
--- NOTE | 2020-02-20 19:20 | EKG REPORT ---
SEVERITY:- ABNORMAL ECG - SINUS RHYTHM BIATRIAL ABNORMALITIES BORDERLINE ST ELEVATION, ANTERIOR LEADS : Confirmed by: Arlene Abreu MD 20-Feb-2020 19:19:23
== END 2020-02-20 14:52 | disposition home or self-care (01) ==
LOC: ER 10:50
DX: J44.1 Chronic obstructive pulmonary disease with (acute) exacerbation (principal); J90 Pleural effusion, not elsewhere classified; R06.02 Shortness of breath; R05 Cough; F17.290 Nicotine dependence, other tobacco product, uncomplicated; F14.10 Cocaine abuse, uncomplicated; F12.10 Cannabis abuse, uncomplicated; Z87.01 Personal history of pneumonia (recurrent); Z79.899 Other long term (current) drug therapy
CPT/HCPCS: 93005; 94640 ×2; 99285; 96375; 96365; 36415; 85025; 80053; 84484; 83880; 71045; 93010; J2930; J0696

== ENCOUNTER 2020-04-02 19:28 | Emergency (ER) | payer OTHER ==
[2020-04-02] MEDS ORDERED: IPRATROPIUM/ALBUTEROL 0.5-2.5 MG/3 ML AMPUL NEB ONE ×2 (20:26→23:40)
[2020-04-02] MEDS ORDERED: PREDNISONE 20 MG TABLET PO ONE (20:26)
--- NOTE | 2020-04-02 20:28 | ER Document Report ---
ED Medical Screen (RME) - General Chief Complaint: Shortness Of Breath Stated Complaint: SHORTNESS OF BREATH Time Seen by Provider: 04/02/20 20:22 Primary Care Provider: TIA MALIK [Primary Care Provider] - Follow up as needed Mode of Arrival: Ambulatory Information source: Patient Notes: Patient presents complaining of shortness of breath for the past 4 days. Luann cavazos recently tried to quit smoking but was unsuccessful. Patient denies any fever or chest pain. Patient does have a history of COPD. I have greeted and performed a rapid initial assessment of this patient. A comprehensive ED assessment and evaluation of the patient, analysis of test results and completion of the medical decision making process will be conducted by additional ED providers. TRAVEL OUTSIDE OF THE [place] IN LAST 30 DAYS: No - Related Data Allergies/Adverse Reactions: No Known Allergies Allergy (Unverified 03/23/19 17:26) Past Medical History Pulmonary Medical History: Reports: Hx Asthma, Hx COPD Past Surgical History: Reports: Other - Eye surgery - Immunizations Hx Diphtheria, Pertussis, Tetanus Vaccination: No Physical Exam - Vital signs Vitals: Temp Pulse Resp BP Pulse Ox 98.2 F 73 18 137/79 H 94 04/02/20 20:13 04/02/20 20:13 04/02/20 20:13 04/02/20 20:13 04/02/20 20:13 - Respiratory Respiratory status: No respiratory distress Breath sounds: Nonproductive cough, Wheezing - Diffuse bilateral - Cardiovascular Rhythm: Regular Heart sounds: S1 appreciated, S2 appreciated Course - Vital Signs Vital signs: Temp Pulse Resp BP Pulse Ox 98.2 F 73 18 137/79 H 94 04/02/20 20:13 04/02/20 20:13 04/02/20 20:13 04/02/20 20:13 04/02/20 20:13 Doctor's Discharge - Discharge Referrals: [facility] [Primary Care [facility]] - Follow up as needed
[2020-04-02] MEDS: ALBUTEROL SULFATE 0.083% NEB 2.5 MG/3 ML AMPUL NEB SCH ×2 (21:24→21:42)
[2020-04-02 21:26] LABS: ABSOLUTE EOSINOPHILS # (AUTO) 0.5 10^3/uL (0.0-0.6); ABSOLUTE LYMPHOCYTES (AUTO) 1.9 10^3/uL (0.5-4.7); ABSOLUTE MONOCYTES (AUTO) 0.4 10^3/uL (0.1-1.4); ABSOLUTE NEUT (AUTO) 1.6 10^3/uL (1.7-8.2); BASOPHILS % (AUTO) 0.9 % (0-2); EOSINOPHILS % (AUTO) 10.8 % (0-6); HEMATOCRIT 41.5 % (37.9-51.0); HEMOGLOBIN 13.6 g/dL (13.5-17.0); LYMPHOCYTES % (AUTO) 43.8 % (13-45); MEAN CORPUSCULAR HEMOGLOBIN 28.9 pg (27.0-33.4); MEAN CORPUSCULAR HGB CONC 32.7 g/dL (32.0-36.0); MEAN CORPUSCULAR VOLUME 88 fl (80-97); MONOCYTES % (AUTO) 8.2 % (3-13); PLATELET COUNT 237 10^3/uL (150-450); RED BLOOD COUNT 4.71 10^6/uL (4.35-5.55); RED CELL DISTRIBUTION WIDTH 15.3 % (11.5-14.0); SEGMENTED NEUTROPHILS % (AUTO) 36.3 % (42-78); TOTAL CELLS COUNTED % (AUTO) 100 %; WHITE BLOOD COUNT 4.4 10^3/uL (4.0-10.5)
[2020-04-02 21:45] LABS: ALBUMIN 4.6 g/dL (3.5-5.0); ALKALINE PHOSPHATASE 66 U/L (38-126); ANION GAP 7 (5-19); ASPARTATE AMINO TRANSFERASE 37 U/L (17-59); BILIRUBIN,DIRECT 0.2 mg/dL (0.0-0.4); BILIRUBIN,TOTAL 0.4 mg/dL (0.2-1.3); BLOOD UREA NITROGEN 17 mg/dL (7-20); CALCIUM 9.8 mg/dL (8.4-10.2); CARBON DIOXIDE 31 mmol/L (22-30); CHLORIDE 103 mmol/L (98-107); GLUCOSE 94 mg/dL (75-110); POTASSIUM 4.4 mmol/L (3.6-5.0); TOTAL PROTEIN 8.2 g/dL (6.3-8.2)
[2020-04-02 21:57] LABS: NT PRO BNP 68 pg/mL (<125); TROPONIN I < 0.012 ng/mL
--- NOTE | 2020-04-02 22:10 | RADIOLOGY REPORT (SQ) ---
EXAM DESCRIPTION: Site: CHEST SINGLE VIEW RP: XR CHEST 1 VIEW CLINICAL HISTORY: 64 years Male; sob; COMPARISON: 02/20/2020 FINDINGS: Lungs: Lungs are clear, with no focal infiltrate, pneumothorax, or pleural effusion. Mediastinum: Mediastinum is within normal limits for this positioning. Bones: Bony structures are unremarkable. IMPRESSION: 1. No acute pulmonary findings.
--- NOTE | 2020-04-02 22:28 | EKG REPORT ---
SEVERITY:- ABNORMAL ECG - SINUS ARRHYTHMIA, RATE 50-75 BIATRIAL ABNORMALITIES : Confirmed by: Arlene Abreu MD 02-Apr-2020 22:28:06
[2020-04-02] MEDS ORDERED: MAGNESIUM SULFATE/D5W 1 GM/100 ML RTUPB IV SCH (23:45)
--- NOTE | 2020-04-02 23:52 | ER Document Report ---
ED Respiratory Problem - General Chief Complaint: Shortness Of Breath Stated Complaint: SHORTNESS OF BREATH Time Seen by Provider: 04/02/20 20:22 Primary Care Provider: [facility] [[facility]] - Follow up as needed Mode of Arrival: Ambulatory Notes: CHIEF COMPLAINT: Shortness of breath for 4 days HPI: 64-year-old male presenting for shortness of breath for 4 days. History of COPD, 1-2 pack-a-day smoker. States he normally has an albuterol inhaler and when he gets short of breath like this he uses it and it works but over the last several days he has noticed that the shortness of breath continues again within 30 to 60 minutes after using the inhaler. Did not call her primary care provider for evaluation of his symptoms did not stop smoking. Has no chest pain no fever. ROS: See HPI - all other systems were reviewed and are otherwise negative Constitutional: no fever Eyes: no drainage, no blurred vision ENT: no runny nose, no sore throat Cardiovascular: no chest pain Resp: + SOB, positive chronic cough GI: no vomiting, no diarrhea, no abdominal pain : no dysuria Integumentary: no rash Allergy: no hives Musculoskeletal: no extremity pain or swelling Neurological: no numbness/tingling, no weakness MEDICATIONS: I agree with the patient medications as charted by the RN. ALLERGIES: I agree with the allergies as charted by the RN. PAST MEDICAL HISTORY/PAST SURGICAL HISTORY: Reviewed and agree as charted by RN. SOCIAL HISTORY: Reviewed and agree as charted by RN. FAMILY HISTORY: No significant familial comorbid conditions directly related to patient complaint EXAM: Reviewed vital signs as charted by RN. CONSTITUTIONAL: Alert and oriented and responds appropriately to questions. Well-appearing; well-nourished HEAD: Normocephalic; atraumatic EYES: PERRL; Conjunctivae clear, sclerae non-icteric ENT: normal nose; no rhinorrhea; moist mucous membranes; pharynx without lesions noted, no uvula edema or deviation, no tonsillar hypertrophy, phonation normal NECK: Supple without meningismus; non-tender; no cervical lymphadenopathy, no masses CARD: RRR; no murmurs, no clicks, no rubs, no gallops; symmetric distal pulses RESP: Normal chest excursion without splinting or tachypnea; breath sounds decreased bilaterally with expiratory wheezing noted, no rhonchi, no rales, pulse oximetry 94% on room air not hypoxic ABD/GI: Normal bowel sounds; non-distended; soft, non-tender, no rebound, no guarding; no palpable organomegaly or masses. BACK: The back appears normal and is non-tender to palpation, there is no CVA tenderness EXT: Normal ROM in all joints; non-tender to palpation; no cyanosis, no effusions, no edema SKIN: Normal color for age and race; warm; dry; good turgor; no acute lesions noted NEURO: Moves all extremities equally; Motor and sensory function intact PSYCH: The patient's mood and manner are appropriate. Grooming and personal hygiene are appropriate. MDM: EKG shows a sinus arrhythmia with a varying rate between 50 and 75. NV 156 QT 392 QTC 398. Abnormal EKG. Interpreted by emergency department physicians. 64-year-old male with likely COPD exacerbation. Initial screening labs including cardiac labs done via the triage process were all negative. Negative BNP negative troponin. Chest x-ray negative for pneumonia. Patient is not concerned about Covid. Has received 2 breathing treatments and steroids, still having some expiratory wheezing will give additional breathing treatment and magnesium IV and reassess, if breathing is improved will prescribe steroids, inhaler and close follow-up with recommendation to stop smoking, low suspicion for ACS TRAVEL OUTSIDE OF THE [place] IN LAST 30 DAYS: No - Related Data Allergies/Adverse Reactions: No Known Allergies Allergy (Unverified 03/23/19 17:26) Past Medical History - General Information source: Patient - Social History Smoking Status: Current Every Day Smoker Frequency of alcohol use: Heavy Drug Abuse: Marijuana Family History: Reviewed & Not Pertinent Patient has homicidal ideation: No Pulmonary Medical History: Reports: Hx Asthma, Hx COPD Past Surgical History: Reports: Other - Eye surgery - Immunizations Hx Diphtheria, Pertussis, Tetanus Vaccination: No Physical Exam - Vital signs Vitals: Temp Pulse Resp BP Pulse Ox 98.2 F 73 18 137/79 H 94 04/02/20 20:13 04/02/20 20:13 04/02/20 20:13 04/02/20 20:13 04/02/20 20:13 Course - Re-evaluation Re-evalutation: 04/03/20 00:18 As nursing was starting the magnesium drip I noted that the patient's magnesium level that I had ordered had come back at slightly elevated at 2.5. I was able to have them stop the drip as it started. Patient did receive another breathing treatment, he is no longer having significant wheezing although he still slightly expiratory wheezing. He is not hypoxic his pulse oximetry is 98% on room air at this time. Will discharge home with instruction to stop smoking, keep him on prednisone, albuterol inhaler. - Vital Signs Vital signs: Temp Pulse Resp BP Pulse Ox 98.2 F 73 18 137/79 H 94 04/02/20 20:13 04/02/20 20:13 04/02/20 20:13 04/02/20 20:13 04/02/20 20:13 - Laboratory Result Diagrams: 04/02/20 21:12 04/02/20 21:12 Laboratory results interpreted by me: 04/02/20 04/02/20 04/02/20 21:12 21:12 21:12 RDW 15.3 H Eos % (Auto) 10.8 H Absolute Neuts (auto) 1.6 L Seg Neutrophils % 36.3 L Carbon Dioxide 31 H Creatinine 1.38 H Est GFR (MDRD) Non-Af 52 L Magnesium 2.5 H Discharge - Discharge Clinical Impression: COPD exacerbation, Hypermagnesemia, Tobacco abuse Condition: Stable Disposition: HOME, SELF-CARE Additional Instructions: Stop smoking. Use the albuterol inhaler 2 puffs every 4 hours as needed for shortness of breath. Take the prednisone as prescribed. Follow-up with your primary care provider for reevaluation of symptoms return for worsening shortness of breath Prescriptions: Prednisone [Deltasone 20 mg Tablet] 2 tab PO DAILY 5 Days #10 tablet Albuterol Sulfate [Proair HFA Inhalation Aerosol 8.5 gm MDI] 2 puff IH Q4H PRN #1 mdi PRN Reason: Referrals: [facility] [[facility]] - Follow up as needed
[2020-04-03 01:24] VITALS: BP 149/77
== END 2020-04-03 01:20 | disposition home or self-care (01) ==
LOC: ER 19:28
DX: J44.1 Chronic obstructive pulmonary disease with (acute) exacerbation (principal); E83.41 Hypermagnesemia; I49.9 Cardiac arrhythmia, unspecified; F17.200 Nicotine dependence, unspecified, uncomplicated; F12.10 Cannabis abuse, uncomplicated; Z79.899 Other long term (current) drug therapy
CPT/HCPCS: 93005; 99285; 96374; 36415; 83735; 85025; 80053; 84484; 83880; 71045; 93010; J3475; J7512; J7613

== ENCOUNTER 2020-04-20 06:11 | Emergency (ER) | payer OTHER ==
[2020-04-20 07:06] LABS: ABSOLUTE EOSINOPHILS # (AUTO) 0.2 10^3/uL (0.0-0.6); ABSOLUTE LYMPHOCYTES (AUTO) 1.8 10^3/uL (0.5-4.7); ABSOLUTE MONOCYTES (AUTO) 0.7 10^3/uL (0.1-1.4); BASOPHILS % (AUTO) 0.3 % (0-2); EOSINOPHILS % (AUTO) 2.2 % (0-6); HEMATOCRIT 38.4 % (37.9-51.0); HEMOGLOBIN 12.4 g/dL (13.5-17.0); MEAN CORPUSCULAR HEMOGLOBIN 28.5 pg (27.0-33.4); MEAN CORPUSCULAR HGB CONC 32.4 g/dL (32.0-36.0); MEAN CORPUSCULAR VOLUME 88 fl (80-97); MONOCYTES % (AUTO) 9.1 % (3-13); PLATELET COUNT 211 10^3/uL (150-450); RED BLOOD COUNT 4.36 10^6/uL (4.35-5.55); RED CELL DISTRIBUTION WIDTH 15.4 % (11.5-14.0); SEGMENTED NEUTROPHILS % (AUTO) 65.4 % (42-78); TOTAL CELLS COUNTED % (AUTO) 100 %; WHITE BLOOD COUNT 7.6 10^3/uL (4.0-10.5)
[2020-04-20 07:15] LABS: ALBUMIN 4.3 g/dL (3.5-5.0); ALKALINE PHOSPHATASE 67 U/L (38-126); ANION GAP 7 (5-19); ASPARTATE AMINO TRANSFERASE 39 U/L (17-59); BILIRUBIN,DIRECT 0.2 mg/dL (0.0-0.4); BILIRUBIN,TOTAL 0.5 mg/dL (0.2-1.3); BLOOD UREA NITROGEN 12 mg/dL (7-20); CALCIUM 9.5 mg/dL (8.4-10.2); CARBON DIOXIDE 31 mmol/L (22-30); CHLORIDE 104 mmol/L (98-107); CREATINE KINASE 287 U/L (55-170); GLUCOSE 102 mg/dL (75-110); POTASSIUM 3.8 mmol/L (3.6-5.0); TOTAL PROTEIN 7.5 g/dL (6.3-8.2)
[2020-04-20 07:27] LABS: CREATINE KINASE MB 4.37 ng/mL (<4.55)
[2020-04-20 07:28] LABS: TROPONIN I < 0.012 ng/mL
--- NOTE | 2020-04-20 07:33 | RADIOLOGY REPORT (SQ) ---
CHEST X-RAY 1 VIEW on 04/20/2020 at 6:57 AM CLINICAL INDICATION: Chest pain, cough COMPARISON: 04/02/2020 FINDINGS: Emphysematous changes of the lungs are noted. There is evidence of calcified granulomatous disease in the chest. The lungs are otherwise clear. Cardiac, hilar and mediastinal contours are within normal limits. Pulmonary vascularity is within normal limits. IMPRESSION: No acute disease.
[2020-04-20] MEDS ORDERED: NORMAL SALINE 1000 ML 1,000 ML IV ONE (07:58)
--- NOTE | 2020-04-20 08:04 | EKG REPORT ---
SEVERITY:- ABNORMAL ECG - SINUS RHYTHM PROBABLE LEFT VENTRICULAR HYPERTROPHY : Confirmed by: Noble Sampson 20-Apr-2020 08:04:05
[2020-04-20] MEDS ORDERED: ALBUTEROL SULFATE 0.083% NEB 2.5 MG/3 ML AMPUL NEB ONE (09:25)
[2020-04-20] MEDS ORDERED: PREDNISONE 20 MG TABLET PO ONE (11:00)
--- NOTE | 2020-04-20 11:03 | ER Document Report ---
Entered by JENELLE PATEL SCRIBE 04/20/20 0707 Acting as scribe for:LUIS E BUCKLEY MD ED Respiratory Problem - General Chief Complaint: Shortness Of Breath Stated Complaint: DIFFICULTY BREATHING [facility] [[facility] - Follow up as needed Mode of Arrival: Medic Information source: Patient, Emergency Med Personnel Notes: This 64 year old male patient with a history of COPD presents to the ED today via EMS with complaints of shortness of breath with associated cough and dyspnea on exertion that started around 1800 last night. Patient states that he has been using his inhaler multiple times without relief, but his breathing wasn't getting any better, so he called EMS. Patient received 125 mg Solumedrol, 2 g Mag, and x2 Albuterol treatments. Denies any COVID concerns. TRAVEL OUTSIDE OF THE [place] IN LAST 30 DAYS: No - Related Data Allergies/Adverse Reactions: No Known Allergies Allergy (Unverified 03/23/19 17:26) Past Medical History - General Information source: Patient, [facility] Records - Social History Smoking Status: Current Every Day Smoker Smoking Education Provided: No Drug Abuse: Cocaine Family History: Reviewed & Not Pertinent Patient has suicidal ideation: No Patient has homicidal ideation: No Pulmonary Medical History: Reports: Hx Asthma, Hx COPD Past Surgical History: Reports: Other - Eye surgery - Immunizations Hx Diphtheria, Pertussis, Tetanus Vaccination: No Review of Systems - Review of Systems Constitutional: No symptoms reported EENT: No symptoms reported Cardiovascular: See HPI, Dyspnea Respiratory: See HPI, Cough, Short of breath Gastrointestinal: No symptoms reported Genitourinary: No symptoms reported Male Genitourinary: No symptoms reported Musculoskeletal: No symptoms reported Skin: No symptoms reported Hematologic/Lymphatic: No symptoms reported Neurological/Psychological: No symptoms reported -: Yes All other systems reviewed and negative Physical Exam - Vital signs Vitals: Temp 98.1 F 04/20/20 06:11 - General General appearance: Alert In distress: None - HEENT Head: Normocephalic, Atraumatic Eyes: Normal Pupils: PERRL Neck: Normal, Supple - Respiratory Respiratory status: No respiratory distress, Other - 100% on 2L via NC. No: Tachypnea Chest status: Nontender Breath sounds: Wheezing - Trace inspiratory and expiratory wheezing Chest palpation: Normal - Cardiovascular Rhythm: Regular Heart sounds: Normal auscultation Murmur: No Friction rub: No Gallop: None auscultated - Abdominal Inspection: Normal Distension: No distension Bowel sounds: Normal Tenderness: Nontender - Abdomen soft Organomegaly: No organomegaly - Back Back: Normal, Nontender - Extremities General upper extremity: Normal inspection General lower extremity: Normal inspection. No: Edema - Neurological Neuro grossly intact: Yes Orientation: AAOx4 [place] Coma Scale Eye Opening: Spontaneous [place] Coma Scale Verbal: Oriented [place] Coma Scale Motor: Obeys Commands [place] Coma Scale Total: 15 - Psychological Associated symptoms: Normal affect, Normal mood - Skin Skin Temperature: Warm Skin Moisture: Dry Skin Color: Normal Course - Re-evaluation Re-evalutation: 04/20/20 10:55 Patient resting comfortably. Not showing any signs of distress. - Vital Signs Vital signs: Temp Pulse Resp BP Pulse Ox 98.1 F 17 161/95 H 99 04/20/20 06:11 04/20/20 07:00 04/20/20 06:13 04/20/20 07:00 04/20/20 10:55 Vital signs are stable blood pressure is 161/95. - Laboratory Result Diagrams: 04/20/20 06:25 04/20/20 06:25 Laboratory results interpreted by me: 04/20/20 04/20/20 06:25 06:25 Hgb 12.4 L RDW 15.4 H Carbon Dioxide 31 H Creatine Kinase 287 H 04/20/20 06:25 04/20/20 06:25 MCV 88 fl (80-97) 04/20/20 06:25 MCH 28.5 pg (27.0-33.4) 04/20/20 06:25 MCHC 32.4 g/dL (32.0-36.0) 04/20/20 06:25 RDW 15.4 % (11.5-14.0) H 04/20/20 06:25 Seg Neutrophils % 65.4 % (42-78) 04/20/20 06:25 Chloride 104 mmol/L (98-107) 04/20/20 06:25 Carbon Dioxide 31 mmol/L (22-30) H 04/20/20 06:25 Anion Gap 7 (5-19) 04/20/20 06:25 Est GFR ( Amer) > 60 (>60) 04/20/20 06:25 Glucose 102 mg/dL (75-110) 04/20/20 06:25 Calcium 9.5 mg/dL (8.4-10.2) 04/20/20 06:25 Total Bilirubin 0.5 mg/dL (0.2-1.3) 04/20/20 06:25 AST 39 U/L (17-59) 04/20/20 06:25 Alkaline Phosphatase 67 U/L (38-126) 04/20/20 06:25 Total Protein 7.5 g/dL (6.3-8.2) 04/20/20 06:25 Albumin 4.3 g/dL (3.5-5.0) 04/20/20 06:25 04/20/20 04/20/20 04/20/20 06:25 06:25 09:21 Creatine Kinase 287 H CK-MB (CK-2) 4.37 Troponin I < 0.012 0.029 Not any patient's laboratories within normal range. There is no elevation in troponin patient has no chest pain while in the department - Diagnostic Test Radiology reviewed: Image reviewed, Reports reviewed Radiology results interpreted by me: 04/20/20 10:57 Chest X-Ray 04/20/20 06:47 IMPRESSION: No acute disease. Chest x-ray shows no acute process. - EKG Interpretation by Me Additional EKG results interpreted by me: 04/20/20 10:57 Twelve-lead EKG shows normal sinus rhythm rate of 79 normal axis normal PE RR interval normal QRS interval and normal QT interval no acute ST elevations to suggest STEMI left ventricular hypertrophy noted based on voltage criteria. Discharge - Discharge Clinical Impression: COPD exacerbation Condition: Stable Disposition: HOME, SELF-CARE Additional Instructions: Chronic Obstructive Lung Disease You have chronic obstructive lung disease (COPD). The symptoms come from emphysema (damage to small airways, with trapping of air in large sacks in the lung) and chronic bronchitis (repeated infection and damage to larger airways). The cause is almost always cigarette smoking, although dust exposure, asthma, and infections contribute. You should avoid fumes, dust, and smoke (especially tobacco smoke). Your condition will flare from time to time. There is no cure, but the symptoms can be treated. Bronchodilators (asthma medicine) are often helpful. Antibiotics help when infection is present. When shortness of breath is severe, we may prescribe cortisone medication. If medicine doesn't help enough, we can arrange for you to have an oxygen tank at home. Notify your doctor at once if sputum becomes thick, foul, or bloody, if you develop a fever or chest pain, or if your shortness of breath worsens. Prescriptions: Prednisone [Deltasone 20 mg Tablet] 2 tab PO DAILY 5 Days #10 tablet [facility]errals: [facility] [[facility]] - Follow up as needed I personally performed the services described in the documentation, reviewed and edited the documentation which was dictated to the scribe in my presence, and it accurately records my words and actions.
[2020-04-20 11:17] VITALS: BP 158/90
== END 2020-04-20 11:17 | disposition home or self-care (01) ==
LOC: ER 06:11
DX: J44.1 Chronic obstructive pulmonary disease with (acute) exacerbation (principal); F17.200 Nicotine dependence, unspecified, uncomplicated
CPT/HCPCS: 93005; 94640; 99285; 96360; 36415; 82553; 82550; 85025; 80053; 84484; 71045; 93010; J7512; J7030; J7613

== ENCOUNTER 2020-05-28 16:35 | Emergency (ER) | payer OTHER ==
--- NOTE | 2020-05-28 18:00 | RADIOLOGY REPORT (SQ) ---
EXAM DESCRIPTION: CHEST SINGLE VIEW IMAGES COMPLETED DATE/TIME: 05/28/2020 5:42 pm REASON FOR STUDY: sob COMPARISON: 04/20/2020 EXAM PARAMETERS: NUMBER OF VIEWS: One view. TECHNIQUE: Single frontal radiographic view of the chest acquired. RADIATION DOSE: NA LIMITATIONS: None. FINDINGS: LUNGS AND PLEURA: Hyperexpansion of the lungs. No infiltrate, effusion, or mass. MEDIASTINUM AND HILAR STRUCTURES: No masses. Contour normal. HEART AND VASCULAR STRUCTURES: Heart normal in size. Normal vasculature. BONES: No acute findings. HARDWARE: None in the chest. OTHER: No other significant finding. IMPRESSION: Chronic lung changes with no acute cardiopulmonary findings. TECHNICAL DOCUMENTATION: JOB ID: [id number] 2010 [employer]- All Rights Reserved Reading location - IP/workstation name: [email or web address]
[2020-05-28] MEDS ORDERED: IPRATROPIUM/ALBUTEROL 0.5-2.5 MG/3 ML AMPUL NEB ONE (18:10)
--- NOTE | 2020-05-28 18:15 | ER Document Report ---
ED General - General Chief Complaint: Shortness Of Breath Stated Complaint: SHORTNESS OF BREATH Time Seen by Provider: 05/28/20 17:16 Primary Care Provider: HELENA,TIA [Primary Care Provider] - Follow up as needed TRAVEL OUTSIDE OF THE [place] IN LAST 30 DAYS: No - HPI Notes: Patient is a 64-year-old male with a history of COPD who presents to the emergency department for evaluation of shortness of breath. Symptoms started yesterday. He has had a cough, intermittently productive of phlegm. He denies any hemoptysis. He denies any pain. He said no fevers or chills. No anosmia or difficulty with sense of taste. No nausea, vomiting, diarrhea. No known Covid exposures. He was treated in route, states he is feeling significantly improved. - Related Data Allergies/Adverse Reactions: No Known Allergies Allergy (Verified 05/28/20 17:26) Home Medications: Prednisone. Albuterol Past Medical History - General Information source: Patient - Social History Smoking Status: Current Every Day Smoker Chew tobacco use (# tins/day): No Frequency of alcohol use: Occasional Drug Abuse: Cocaine Family History: Reviewed & Not Pertinent Pulmonary Medical History: Reports: Hx Asthma, Hx COPD Past Surgical History: Reports: Other - Eye surgery - Immunizations Hx Diphtheria, Pertussis, Tetanus Vaccination: No Review of Systems - Review of Systems Constitutional: No symptoms reported EENT: No symptoms reported Cardiovascular: No symptoms reported Respiratory: See HPI Gastrointestinal: No symptoms reported Genitourinary: No symptoms reported Musculoskeletal: No symptoms reported Skin: No symptoms reported Neurological/Psychological: No symptoms reported Physical Exam - Vital signs Vitals: Resp 25 H 05/28/20 16:46 - Notes Notes: This is a 64-year-old male who appears his stated age, no acute distress. Vital signs reviewed, please refer to chart. Head is normocephalic, atraumatic. Pupils equal round, reactive to light. Neck is supple without meningismus. Heart is regular rate and rhythm. Lungs reveal prolonged expiratory phase and expiratory wheezes throughout. Abdomen is soft, nontender, normoactive bowel so unds throughout. Extremities without cyanosis, clubbing. Posterior calves are nontender. Peripheral pulses are equal. Skin is warm and dry. Patient is awake, alert, neurological exam is nonfocal. Course - Re-evaluation Re-evalutation: 05/28/20 18:13 Patient presents emergency department for evaluation. He was brought into a r oom and orders were placed as per nursing protocols. Patient received albuterol, magnesium, Solu-Medrol in route. I will order further DuoNeb. He was initially placed on oxygen, orders have been given to the nurse to keep his oxygenation around 92%. Chest x-ray interpreted by myself as showing findings consistent with COPD without any signs of infiltrate. Patient is subjectively feeling significantly improved. Awaiting labs, we will continue to monitor. 05/28/20 20:11 Patient's labs are unremarkable. He is 92% and higher on room air. He is feeling improved. I will treat him as a COPD exacerbation with antibiotics and steroids, will also write prescription for an albuterol inhaler as he does not have a nebulizer and he is unsure as to all of the inhalers he has at home. [facility], return to the ED with worsening or new concerning symptoms of any sort. - Vital Signs Vital signs: Temp Pulse Resp BP Pulse Ox 17 122/68 93 05/28/20 19:55 05/28/20 19:55 05/28/20 19:55 - Laboratory Results Result Diagrams: 05/28/20 18:20 Laboratory Results Interpreted: 05/28/20 05/28/20 16:49 18:20 WBC 11.0 H RDW 15.0 H Seg Neuts % (Manual) 92 H Lymphocytes % (Manual) 6 L Monocytes % (Manual) 0 L Abs Neuts (Manual) 10.1 H Abs Monocytes (Manual) 0.0 L Urine Protein 100 H Urine Blood SMALL H Critical Laboratory Results Reviewed: No Critical Results - Radiology Results Radiology Results Interpreted: 05/28/20 18:14 Chest X-Ray 05/28/20 17:11 IMPRESSION: Chronic lung changes with no acute cardiopulmonary findings. Critical Radiology Results Reviewed: No Critical Results - EKG Interpretation by Me Additional EKG results interpreted by me: 05/28/20 20:19 Sinus mechanism in the 80s. Normal axis and intervals. No acute ST changes concerning for ischemia or infarction. No old studies immediately available for comparison. Discharge - Discharge Clinical Impression: COPD exacerbation Condition: Stable Disposition: HOME, SELF-CARE Instructions: Chronic Obstructive Lung Disease ([facility]) Additional Instructions: Rest. Please try to continue to quit smoking. Take all of the medications as prescribed until they are gone, starting tomorrow. [facility] If you develop worsening or new concerning symptoms of any sort, return immediately to the emergency department for evaluation. Prescriptions: Prednisone [Deltasone 20 mg Tablet] See Protocol PO DAILY 5 Days #20 tablet Doxycycline Hyclate 100 mg PO BID #13 tablet. Albuterol Sulfate [Proair HFA Inhalation Aerosol 8.5 gm MDI] 2 puff IH Q4H PRN #1 mdi PRN Reason: [facility]errals: [facility] [[facility]] - Follow up as needed
[2020-05-28 18:24] LABS: APPEARANCE,URINE CLEAR; BILIRUBIN,URINE NEGATIVE (NEGATIVE); COLOR,URINE COLORLESS; GLUCOSE, URINE NEGATIVE (NEGATIVE); KETONES,URINE NEGATIVE (NEGATIVE); LEUKOCYTE ESTERASE,URINE NEGATIVE (NEGATIVE); NITRITE,URINE NEGATIVE (NEGATIVE); PROTEIN,URINE 100 mg/dL (NEGATIVE); UROBILINOGEN,URINE NEGATIVE mg/dL (<2.0)
[2020-05-28 18:49] LABS: HEMOGLOBIN 14.6 g/dL (13.5-17.0); MEAN CORPUSCULAR HEMOGLOBIN 28.1 pg (27.0-33.4); MEAN CORPUSCULAR HGB CONC 32.4 g/dL (32.0-36.0); MEAN CORPUSCULAR VOLUME 87 fl (80-97); PLATELET COUNT 227 10^3/uL (150-450); RED BLOOD COUNT 5.19 10^6/uL (4.35-5.55)
[2020-05-28 19:27] LABS: ABSOLUTE LYMPHOCYTES# (MANUAL) 0.7 10^3/uL (0.5-4.7); BASOPHILS % (MANUAL) 0 % (0-2); EOSINOPHILS % (MANUAL) 2 % (0-6); LYMPHOCYTES % (MANUAL) 6 % (13-45); MONOCYTES % (MANUAL) 0 % (3-13); SEGMENTED NEUTROPHILS % (MAN) 92 % (42-78); TOTAL CELLS COUNTED 100
[2020-05-28 19:29] LABS: ANISOCYTOSIS SLIGHT; PLATELET COMMENT ADEQUATE
--- NOTE | 2020-05-28 19:53 | EKG REPORT ---
SEVERITY:- ABNORMAL ECG - SINUS RHYTHM BIATRIAL ABNORMALITIES : Confirmed by: Arlene Abreu MD 28-May-2020 19:52:40
[2020-05-28] MEDS ORDERED: DOXYCYCLINE HYCLATE 100 MG TABLET PO ONE (20:12)
[2020-05-28 20:26] VITALS: BP 128/70
== END 2020-05-28 20:55 | disposition home or self-care (01) ==
LOC: ER 16:35
DX: J44.1 Chronic obstructive pulmonary disease with (acute) exacerbation (principal); R06.02 Shortness of breath; R05 Cough; F17.200 Nicotine dependence, unspecified, uncomplicated; F14.10 Cocaine abuse, uncomplicated; Z79.52 Long term (current) use of systemic steroids; Z79.899 Other long term (current) drug therapy
CPT/HCPCS: 36415; 71045; 81001; 85025; 93005; 93010; 94640; 99285